=== PATIENT | male | born 1955 | race Two or more races ===

== ENCOUNTER 2017-08-08 02:59 | Emergency (ER) | payer SELFPAY ==
[2017-08-08] MEDS ORDERED: FENTANYL CITR 100 MCG/2 ML ONE (03:48)
[2017-08-08] MEDS ORDERED: NA CHLORIDE 0.9% 1,000 ML ONE (03:49)
[2017-08-08] MEDS ORDERED: KETOROLAC 30 MG/ML INJ ONE (03:49)
[2017-08-08] MEDS ORDERED: ONDANSETRON 4 MG/2 ML VIAL ONE (03:50)
[2017-08-08 04:04] LABS: Absolute Lymphocytes (CBC) 2.8 K/uL (0.7-4.9); Absolute Monocytes 0.6 K/uL (0.1-1.3); Basophils % 0.7 % (0-1.3); Hematocrit 42.5 % (39.6-49.0); MCH 28.4 pg (27.0-35.0); MCV 83.8 fL (80-100); MPV 10.2 fL (7.6-11.3); Monocytes % 8.6 % (3.3-12.3); RBC Red Blood Cell Count 5.07 M/uL (4.33-5.43)
[2017-08-08 04:08] LABS: Protime INR 1.1
[2017-08-08 04:24] LABS: Potassium 4.1 mEq/L (3.6-5.0)
[2017-08-08 04:27] LABS: Magnesium 1.8 mg/dL (1.8-2.5)
[2017-08-08 04:30] LABS: Albumin 4.3 g/dL (3.2-5.5); Bilirubin Direct 0.1 mg/dL (0-0.2); Bilirubin Total 0.5 mg/dL (0.3-1.2); CKMB Creatine Kinase MB 2.5 ng/ml (0.3-4.0); Protein, Total 7.5 g/dL (6.0-8.3)
[2017-08-08] MEDS ORDERED: CEFTRIAXONE/SWI 1gm 1 GM/10 ML SYR ONE (05:13)
[2017-08-08] MEDS ORDERED: TAMSULOSIN 0.4 MG SR CAP ONE (05:13)
[2017-08-08 05:44] LABS: Urine Blood 3+ (NEG); Urine Glucose NEGATIVE (NEG); Urine Protein 2+ (NEG); Urine Specific Gravity >1.030 (1.005-1.030); Urine pH 5.5 (5.0-7.0)
[2017-08-08 05:58] LABS: Urine Bacteria <20 /HPF (NONE SEEN); Urine Culture Reflex Order NOT NEEDED; Urine RBC >50 /HPF (NONE SEEN)
--- NOTE | 2017-08-08 05:58 | EDPHYS ---
Physician Documentation [facility] Name: Richa Staples Age: 61 yrs Sex: Male : 1955 Arrival Date: 08/08/2017 Time: 02:59 Bed 14 Private MD: ED Physician Mohan Hager HPI: 08/08 03:21 This 61 yrs old Other Male presents to ER via Unassigned with complaints of Lower Back sheila Pain-L. 03:21 The patient complains of pain in the left low back and left mid back. The pain does not sheila radiate. Onset: The symptoms/episode began/occurred just prior to arrival, this morning. Modifying factors: The symptoms are alleviated by nothing. the symptoms are aggravated by nothing. Associated signs and symptoms: Pertinent positives: nausea. Severity of pain: At its worst the pain was moderate in the emergency department the pain is unchanged. The patient has not experienced similar symptoms in the past. Historical: - Allergies: 03:26 No Known Allergies; bb - Home Meds: 03:26 metoprolol tartrate 50 mg Oral tab 1 tab once daily [Active]; metformin 1,000 mg Oral bb tab 1 tab 2 times per day [Active]; glimepiride 2 mg Oral tab 1 tab once daily [Active]; - PMHx: 03:26 Hypertension; Myocardial infarction; Diabetes - NIDDM; bb - PSHx: 03:26 Heart stents; bb - Immunization history:: Adult Immunizations unknown. - Social history:: Smoking status: Patient/guardian denies using tobacco, Patient/guardian denies using alcohol, street drugs. - Family history:: not pertinent. ROS: 03:22 Constitutional: Negative for fever, chills, and weight loss, Eyes: Negative for injury, sheila pain, redness, and discharge, ENT: Negative for injury, pain, and discharge, Neck: Negative for injury, pain, and swelling, Cardiovascular: Negative for chest pain, palpitations, and edema, Respiratory: Negative for shortness of breath, cough, wheezing, and pleuritic chest pain, Abdomen/GI: Negative for abdominal pain, nausea, vomiting, diarrhea, and constipation, : Negative for injury, bleeding, discharge, and swelling, MS/Extremity: Negative for injury and deformity, Skin: Negative for injury, rash, and discoloration, Neuro: Negative for headache, weakness, numbness, tingling, and seizure, Psych: Negative for depression, anxiety, suicide ideation, homicidal ideation, and hallucinations, Allergy/Immunology: Negative for hives, rash, and allergies, Endocrine: Negative for neck swelling, polydipsia, polyuria, polyphagia, and marked weight changes, Hematologic/Lymphatic: Negative for swollen nodes, abnormal bleeding, and unusual bruising. 03:22 Back: Positive for decreased range of motion, pain at rest, flank pain, on the left. Exam: 03:22 Constitutional: This is a well developed, well nourished patient who is awake, alert, sheila and in no acute distress. Head/Face: Normocephalic, atraumatic. Eyes: Pupils equal round and reactive to light, extra-ocular motions intact. Lids and lashes normal. Conjunctiva and sclera are non-icteric and not injected. Cornea within normal limits. Periorbital areas with no swelling, redness, or edema. ENT: Nares patent. No nasal discharge, no septal abnormalities noted. Tympanic membranes are normal and external auditory canals are clear. Oropharynx with no redness, swelling, or masses, exudates, or evidence of obstruction, uvula midline. Mucous membranes moist. Neck: Trachea midline, no thyromegaly or masses palpated, and no cervical lymphadenopathy. Supple, full range of motion without nuchal rigidity, or vertebral point tenderness. No Meningismus. Chest/axilla: Normal chest wall appearance and motion. Nontender with no deformity. No lesions are appreciated. Cardiovascular: Regular rate and rhythm with a normal S1 and S2. No gallops, murmurs, or rubs. Normal PMI, no JVD. No pulse deficits. Respiratory: Lungs have equal breath sounds bilaterally, clear to auscultation and percussion. No rales, rhonchi or wheezes noted. No increased work of breathing, no retractions or nasal flaring. Abdomen/GI: Soft, non-tender, with normal bowel sounds. No distension or tympany. No guarding or rebound. No evidence of tenderness throughout. Male : Normal genitalia with no discharge or lesions. Skin: Warm, dry with normal turgor. Normal color with no rashes, no lesions, and no evidence of cellulitis. MS/ Extremity: Pulses equal, no cyanosis. Neurovascular intact. Full, normal range of motion. Neuro: Awake and alert, GCS 15, oriented to person, place, time, and situation. Cranial nerves II-XII grossly intact. Motor strength 5/5 in all extremities. Sensory grossly intact. Cerebellar exam normal. Normal gait. Psych: Awake, alert, with orientation to person, place and time. Behavior, mood, and affect are within normal limits. 03:22 Back: pain, that is mild, that is moderate, ROM is painless, normal spinal alignment noted, CVA tenderness, that is mild, is noted on the left, muscle spasm, is appreciated in the left low back and left mid back. Vital Signs: 03:26 BP 152 / 78; Pulse 74; Resp 20 S; Temp 98.8(O); Pulse Ox 96% on R/A; Weight 98.43 kg bb (R); Height 5 ft. 6 in. (167.64 cm) (R); Pain 10/10; 04:13 BP 149 / 70; Pulse 55; Resp 18; Pulse Ox 97% on R/A; ea 05:27 BP 115 / 64; Pulse 70; Resp 18; Pulse Ox 100% ; Pain 0/10; ea 06:00 BP 110 / 70; Pulse 68; Resp 18; Pulse Ox 100% on R/A; Pain 0/10; ea 03:26 Body Mass Index 35.02 (98.43 kg, 167.64 cm) bb MDM: 03:11 Patient medically screened. [facility] 03:22 Data reviewed: vital signs, nurses notes, lab test result(s), EKG, radiologic studies. [facility] 08/08 03:20 Order name: Amylase, Serum; Complete Time: 04:33 [facility] 08/08 03:20 Order name: Basic Metabolic Panel; Complete Time: 04:33 [facility] 08/08 03:20 Order name: CBC with Diff; Complete Time: 04:20 [facility] 08/08 03:20 Order name: Creatinine for Radiology; Complete Time: 04:33 [facility] 08/08 03:20 Order name: Hepatic Function; Complete Time: 04:33 [facility] 08/08 03:20 Order name: Lipase; Complete Time: 04:33 [facility] 08/08 03:20 Order name: Urine Microscopic Only 08/08 03:20 Order name: Urine Culture 08/08 03:24 Order name: BNP; Complete Time: 04:33 [facility] 08/08 03:24 Order name: Ckmb; Complete Time: 04:33 [facility] 08/08 03:24 Order name: CPK; Complete Time: 04:33 [facility] 08/08 03:24 Order name: Magnesium; Complete Time: 04:33 [facility] 08/08 03:24 Order name: PT-INR; Complete Time: 04:20 [facility] 08/08 03:24 Order name: Ptt, Activated; Complete Time: 04:20 [facility] 08/08 03:20 Order name: IV Saline Lock; Complete Time: 03:46 [facility] 08/08 03:20 Order name: Labs collected and sent; Complete Time: 03:53 [facility] 08/08 03:20 Order name: Urine Dipstick-Ancillary (obtain specimen); Complete Time: 05:26 [facility] 08/08 03:24 Order name: Troponin (emerg Dept Use Only); Complete Time: 04:33 [facility] 08/08 03:24 Order name: XRAY Chest (1 view) [facility] 08/08 03:24 Order name: EKG; Complete Time: 03:24 [facility] 08/08 03:24 Order name: Cardiac monitoring; Complete Time: 04:06 [facility] 08/08 04:07 Order name: CT Stone Protocol [facility] 08/08 05:11 Order name: Urine Dipstick--Ancillary (enter results); Complete Time: 05:57 [facility] 08/08 03:24 Order name: EKG - Nurse/Tech; Complete Time: 04:06 [facility] 08/08 03:24 Order name: O2 Per Protocol; Complete Time: 03:53 [facility] 08/08 03:24 Order name: O2 Sat Monitoring; Complete Time: 03:53 [facility] Administered Medications: 04:06 Drug: fentaNYL (PF) 25 mcg Route: IVP; Site: right wrist; ea 05:26 Follow up: Response: No adverse reaction ea 04:07 Drug: TORadol 30 mg Route: IVP; Site: right antecubital; ea 05:25 Follow up: Response: No adverse reaction; Pain is decreased ea 04:07 Drug: Zofran 4 mg Route: IVP; Site: right wrist; ea 05:25 Follow up: Response: No adverse reaction ea 04:08 Drug: NS 0.9% 1000 ml Route: IV; Rate: 1 bolus; Site: right wrist; ea 05:20 Drug: Rocephin - (cefTRIAXone) 1 grams Route: IVPB; Infused Over: 30 mins; Site: right ea wrist; 06:00 Follow up: Response: No adverse reaction; IV Status: Completed infusion ea 05:20 Drug: Flomax 0.4 mg Route: PO; ea 06:12 Follow up: Response: No adverse reaction ea 06:13 Not Given (Patient Refused): fentaNYL (PF) 25 mcg IVP once ea Disposition: 08/08/17 05:58 Discharged to Home. Impression: Low back pain, Hydronephrosis with renal and ureteral calculous obstruction. - Condition is Stable. - Discharge Instructions: Back Pain, Adult, Chronic Back Pain, Kidney Stones, Musculoskeletal Pain, Kidney Stones, Shsr-zj-Uqru, Hydronephrosis, Back Pain, Adult, Bgyf-is-Jepv, Back Exercises, Xwga-tw-Qody, Dietary Guidelines to Help Prevent Kidney Stones. - Prescriptions for Tylenol- Codeine #3 300-30 mg Oral Tablet - take 2 tablet by ORAL route every 6 hours As needed; 30 tablet. Flomax 0.4 mg Oral Capsule, Sust. Release 24 hr - take 1 capsule by ORAL route once daily 1/2 hour following the same meal each day; 30 capsule. Cipro 500 mg Oral Tablet - take 1 tablet by ORAL route every 12 hours for 7 days; 14 tablet. - Medication Reconciliation Form, Thank You Letter, Antibiotic Education, Prescription Opioid Use form. - Follow up: Private Physician; When: 2 - 3 days; Reason: Recheck today's complaints, Continuance of care, Re-evaluation by your physician. Follow up: Esau Mo; When: 2 - 3 days; Reason: Recheck today's complaints, Re-evaluation by your physician. - Problem is new. - Symptoms have improved. Signatures: Dispatcher [employer] [facility] Mohan Hager MD MD cha Ballard, Brenda RN RN Emiliana White RN RN ea Corrections: (The following items were deleted from the chart) 06:16 05:58 08/08/2017 05:58 Discharged to Home. Impression: Low back pain; Hydronephrosis ea with renal and ureteral calculous obstruction. Condition is Stable. Discharge Instructions: Back Pain, Adult, Chronic Back Pain, Kidney Stones, Musculoskeletal Pain, Kidney Stones, Vumf-iv-Gxwz, Hydronephrosis, Back Pain, Adult, Ojbl-cx-Wcpi, Back Exercises, Djsq-bt-Amiu, Dietary Guidelines to Help Prevent Kidney Stones. Prescriptions for Tylenol-Codeine #3 300-30 mg Oral Tablet - take 2 tablet by ORAL route every 6 hours As needed; 30 tablet, Flomax 0.4 mg Oral Capsule, Sust. Release 24 hr - take 1 capsule by ORAL route once daily 1/2 hour following the same meal each day; 30 capsule, Cipro 500 mg Oral Tablet - take 1 tablet by ORAL route every 12 hours for 7 days; 14 tablet. and Forms are Medication Reconciliation Form, Thank You Letter, Antibiotic Education, Prescription Opioid Use. Follow up: Private Physician; When: 2 - 3 days; Reason: Recheck today's complaints, Continuance of care, Re-evaluation by your physician. Follow up: Esau Mo; When: 2 - 3 days; Reason: Recheck today's complaints, Re-evaluation by your physician. Problem is new. Symptoms have improved. sheila
--- NOTE | 2017-08-08 05:58 | ER ---
Nurse's Notes [facility] Name: Richa Staples Age: 61 yrs Sex: Male : 1955 Arrival Date: 08/08/2017 Time: 02:59 Bed 14 Private MD: Diagnosis: Low back pain;Hydronephrosis with renal and ureteral calculous obstruction Presentation: 08/08 03:22 Presenting complaint: Patient states: he has sudden onset of left flank pain last night bb at approx 2300 pain is getting worse. Transition of care: patient was not received from another setting of care. Onset of symptoms was August 07, 2017 at 23:00. Initial Sepsis Screen: Does the patient meet any 2 criteria? No. Patient's initial sepsis screen is negative. Does the patient have a suspected source of infection? No. Patient's initial sepsis screen is negative. Care prior to arrival: None. 03:22 Method Of Arrival: Ambulatory bb 03:22 Acuity: ROMÁN 3 bb Historical: - Allergies: 03:26 No Known Allergies; bb - Home Meds: 03:26 metoprolol tartrate 50 mg Oral tab 1 tab once daily [Active]; metformin 1,000 mg Oral bb tab 1 tab 2 times per day [Active]; glimepiride 2 mg Oral tab 1 tab once daily [Active]; - PMHx: 03:26 Hypertension; Myocardial infarction; Diabetes - NIDDM; bb - PSHx: 03:26 Heart stents; bb - Immunization history:: Adult Immunizations unknown. - Social history:: Smoking status: Patient/guardian denies using tobacco, Patient/guardian denies using alcohol, street drugs. - Family history:: not pertinent. Screenin:12 Abuse screen: Denies threats or abuse. Nutritional screening: No deficits noted. ea Tuberculosis screening: No symptoms or risk factors identified. Fall Risk None identified. Assessment: 03:42 General: Appears uncomfortable, Behavior is calm, cooperative, appropriate for age. ea Pain: Complains of pain in left mid back and left low back Pain radiates to left low back Pain currently is 7 out of 10 on a pain scale. Quality of pain is described as crampy. Neuro: Level of Consciousness is awake, alert, obeys commands, Oriented to person, place, time, situation. Cardiovascular: Heart tones S1 S2 present Patient's skin is warm and dry. Respiratory: Airway is patent Respiratory effort is even, unlabored, Respiratory pattern is regular, symmetrical, Breath sounds are clear bilaterally. GI: Abdomen is non-distended, Bowel sounds present X 4 quads. : Denies burning with urination. EENT: No signs and/or symptoms were reported regarding the EENT system. Derm: Skin is pink, warm \T\ dry. 04:30 Reassessment: Patient and/or family updated on plan of care and expected duration. Pain ea level reassessed. Patient is alert, oriented x 3, equal unlabored respirations, skin warm/dry/pink. 05:23 Reassessment: Patient and/or family updated on plan of care and expected duration. Pain ea level reassessed. Patient is alert, oriented x 3, equal unlabored respirations, skin warm/dry/pink. 06:13 Reassessment: Patient and/or family updated on plan of care and expected duration. Pain ea level reassessed. Patient is alert, oriented x 3, equal unlabored respirations, skin warm/dry/pink. Discharge instructions given to patient, verbalized the understanding of instruction. Vital Signs: 03:26 BP 152 / 78; Pulse 74; Resp 20 S; Temp 98.8(O); Pulse Ox 96% on R/A; Weight 98.43 kg bb (R); Height 5 ft. 6 in. (167.64 cm) (R); Pain 10/10; 04:13 BP 149 / 70; Pulse 55; Resp 18; Pulse Ox 97% on R/A; ea 05:27 BP 115 / 64; Pulse 70; Resp 18; Pulse Ox 100% ; Pain 0/10; ea 06:00 BP 110 / 70; Pulse 68; Resp 18; Pulse Ox 100% on R/A; Pain 0/10; ea 03:26 Body Mass Index 35.02 (98.43 kg, 167.64 cm) bb ED Course: 02:59 Patient arrived in ED. ds1 03:11 Mohan Hager MD is Attending Physician. sheila 03:24 Triage completed. bb 03:26 Arm band placed on Patient placed in an exam room, on a stretcher, on pulse oximetry. bb Family accompanied patient. 03:42 Emiliana Pena RN is Primary Nurse. ea 03:45 Inserted saline lock: 20 gauge in right forearm, using aseptic technique. Blood jd3 collected. 03:52 X-ray completed. Portable x-ray completed in exam room. Patient tolerated procedure kw well. 03:55 XRAY Chest (1 view) In Process Unspecified. EDMS 04:12 Patient has correct armband on for positive identification. Placed in gown. Bed in low ea position. Call light in reach. Side rails up X2. 04:43 CT Stone Protocol In Process Unspecified. EDMS 05:58 Esau Mo MD is Referral Physician. sheila 06:14 No provider procedures requiring assistance completed. IV discontinued, intact, ea bleeding controlled, No redness/swelling at site. Pressure dressing applied. Administered Medications: 04:06 Drug: fentaNYL (PF) 25 mcg Route: IVP; Site: right wrist; ea 05:26 Follow up: Response: No adverse reaction ea 04:07 Drug: TORadol 30 mg Route: IVP; Site: right antecubital; ea 05:25 Follow up: Response: No adverse reaction; Pain is decreased ea 04:07 Drug: Zofran 4 mg Route: IVP; Site: right wrist; ea 05:25 Follow up: Response: No adverse reaction ea 04:08 Drug: NS 0.9% 1000 ml Route: IV; Rate: 1 bolus; Site: right wrist; ea 05:20 Drug: Rocephin - (cefTRIAXone) 1 grams Route: IVPB; Infused Over: 30 mins; Site: right ea wrist; 06:00 Follow up: Response: No adverse reaction; IV Status: Completed infusion ea 05:20 Drug: Flomax 0.4 mg Route: PO; ea 06:12 Follow up: Response: No adverse reaction ea 06:13 Not Given (Patient Refused): fentaNYL (PF) 25 mcg IVP once ea Outcome: 05:58 Discharge ordered by . sheila 06:15 Discharged to home ambulatory, with family. ea 06:15 Condition: improved 06:15 Discharge instructions given to patient, Instructed on discharge instructions, follow up and referral plans. medication usage, Demonstrated understanding of instructions, follow-up care, medications, Prescriptions given X 4. 06:16 Patient left the ED. ea Signatures: Dispatcher [employer] [facility] Mohan Hager MD MD cha Sanford, Demi ds1 Tamiko Huang RN RN Natalya García Elena, RN RN Jackson Luu, RN RN jd3
[2017-08-08 06:20] VITALS: TEMP 98.8
[2017-08-08 06:22] VITALS: O2SAT 100
[2017-08-08 06:23] VITALS: BP 110/70
--- NOTE | 2017-08-08 07:40 | EKG ---
Test Date: 2017-08-08 Test Time: 03:57:33 Supplier Development Manager: FIDELIA MEASUREMENT RESULTS: Intervals: Rate: 72 [place]: 176 QRSD: 84 QT: 372 QTc: 407 [place]: P: 52 KY: 176 QRS: 33 T: 61 INTERPRETIVE STATEMENTS: Normal sinus rhythm Low voltage QRS Cannot rule out Anteroseptal infarct, age undetermined Abnormal ECG Compared to ECG 11/06/2011 06:53:25 T-wave abnormality no longer present Possible ischemia no longer present Myocardial infarct finding still present Electronically Signed On 08-08-17 07:39:58 CDT by Henry Isaac
--- NOTE | 2017-08-08 08:23 | RAD REPORT ---
EXAM DESCRIPTION: CT - Stone Protocol - 08/08/2017 6:06 am CLINICAL HISTORY: Flank pain. COMPARISON: None. TECHNIQUE: Axial images were obtained without oral or IV contrast. Lack of contrast limits solid org an and vascular assessment. The [id number] spans the entirety of the system partially obscuring uppermost abdomen and lung bases. Coronal reformatted images were obtained and reviewed. All CT scans are performed using dose optimization technique as appropriate and may include automated exposure control or mA/KV adjustment according to patient size. FINDINGS: The lower lung brandt are clear. Imaged portions of the liver and spleen show no suspicious findings on non-contrast imaging. The panc reas and adrenal glands are normal. No pathologic lymphadenopathy in the abdomen or pelvis. 5 mm calculus is seen at the left UPJ (1120 HU) resulting in mild left hydronephrosis. Additional sarwat ateral nephrolithiasis is present. No bowel obstruction, free air, free fluid or abscess. Normal appendix noted. No significant bony abnormality. IMPRESSION: 5 mm stone left UPJ (1120 HU) resulting in mild left hydronephrosis. Additional bilateral nephrolithiasis seen.
--- NOTE | 2017-08-08 08:38 | RAD REPORT ---
EXAM DESCRIPTION: RAD - Chest Single View - 08/08/2017 3:56 am CLINICAL HISTORY: Chest and flank pain COMPARISON: 11/04/2011 FINDINGS: Portable technique limits examination quality. The lungs are grossly clear. The heart is normal in size. No displaced fractures. IMPRESSION: No acute intrathoracic process suspected.
== END 2017-08-08 06:16 | disposition home or self-care (01) ==
LOC: ER 02:59
DX: N13.2 Hydronephrosis with renal and ureteral calculous obstruction (principal); I10 Essential (primary) hypertension; E11.9 Type 2 diabetes mellitus without complications; Z95.818 Presence of other cardiac implants and grafts
CPT/HCPCS: 36415; 71045; 74176; 76377; 80048; 80076; 81003; 81015; 82150; 82550; 82553; 83690; 83735; 83880; 84484; 85025; 85610; 85730; 87086; 87088; 93005; 99284; J0696; J2405; J3010; J7030

== ENCOUNTER 2020-04-08 19:59 | Inpatient (IN) | payer OTHER, SELFPAY ==
--- OUTSIDE RECORDS SUMMARY | 2020-04-08 20:02 | XMS REPORT | Continuity of Care Document ---
:1955 Author Organization [facility] t Address [address] [place] [address] Care Team Providers Name Role Phone Yary Tanner MD Attending Clinician Problems This patient has no known problems. Allergies, Adverse Reactions, Alerts This patient has no known allergies or adverse reactions. Medications This patient has no known medications. Procedures This patient has no known procedures. Encounters Start End Encounter Admission Attending Care Care Encounter Source Date/Time Date/Time Type Type Clinicians Facility Department ID 2018-11-22 2018-11-22 Urgent [facility] [id number] 14:22:36 16:23:06 [facility] [id number] Surgical [id number] Special[facility] [id number] [address] Results This patient has no known results.
[2020-04-08] MEDS ORDERED: ONDANSETRON 4 MG/2 ML VIAL ONE (20:54)
[2020-04-08] MEDS ORDERED: FAMOTIDINE 20 MG/2 ML VIAL IV ONE (20:54)
[2020-04-08] MEDS ORDERED: NA CHLORIDE 0.9% 1,000 ML ONE (20:54)
[2020-04-08 21:08] LABS: Absolute Lymphocytes (CBC) 0.8 K/uL (0.7-4.9); Basophils % 0.2 % (0-1.3); Hematocrit 44.9 % (39.6-49.0); Lymphocytes % 10.7 % (15.3-44.8); MPV 10.3 fL (7.6-11.3); RBC Red Blood Cell Count 5.28 M/uL (4.33-5.43)
[2020-04-08 21:19] LABS: ALT/SGPT 29 U/L (12-78); AST/SGOT 14 U/L (15-37); Albumin 4.3 g/dL (3.4-5.0); Alkaline Phosphatase 53 U/L (45-117); BUN Blood Urea Nitrogen 16 mg/dL (7-18); Bicarbonate 25 mmol/L (21-32); Bilirubin Direct 0.1 mg/dL (0-0.2); Bilirubin Total 0.5 mg/dL (0.2-1.0); Glucose Level 118 mg/dL (74-106); Lipase 64 U/L (73-393); Potassium 3.9 mmol/L (3.5-5.1); Protein, Total 8.5 g/dL (6.4-8.2); Sodium Level 135 mmol/L (136-145)
--- NOTE | 2020-04-08 21:19 | RAD REPORT ---
EXAM DESCRIPTION: CTAbdomen Pelvis W Contrast - 04/08/2020 9:11 pm CLINICAL HISTORY: Abdominal pain. ABDOMINAL DISTENTION COMPARISON: Stone Protocol dated 08/08/2017 TECHNIQUE: Biphasic CT imaging of the abdomen and pelvis was performed with 100 ml non-ionic IV cont rast. All CT scans are performed using dose optimization technique as appropriate and may include automated exposure control or mA/KV adjustment according to patient size. FINDINGS: The lung bases are clear. The liver, spleen, pancreas, adrenal glands and left kidney are within normal limits. 7 mm stone is p resent in right kidney inferior calyx without hydronephrosis. Moderate dilatation of multiple small bowel loops in the central abdomen with fecalization of the sma ll bowel likely indicates a mild to moderate mechanical small-bowel obstruction. No pneumatosis coli. No free fluid or abscess. No intraperitoneal free air. The appendix is normal. No evidence of signi ficant lymphadenopathy. No suspicious bony findings. IMPRESSION: Mild to moderate mechanical small-bowel obstruction.
--- NOTE | 2020-04-08 21:59 | EDPHYS ---
Physician Documentation [facility] Name: Richa Staples Age: 64 yrs Sex: Male : 1955 Arrival Date: 04/08/2020 Time: 20:01 Bed 7 Private MD: ED Physician José Luis Oakes HPI: 04/08 20:43 This 64 yrs old Male presents to ER via Ambulatory with complaints of Decreased mh7 Appetite, Urinary Problem, Constipation, Vomiting. 20:43 The patient presents with abdominal distention that is diffuse. Onset: The mh7 symptoms/episode began/occurred today. The symptoms do not radiate. Associated signs and symptoms: Pertinent positives: nausea and vomiting, constipation, dysuria, Pertinent negatives: anorexia, blood in stools, chest pain, diarrhea, fever, headache, hematuria, palpitations, shortness of breath, testicular pain, vomiting blood. The symptoms are described as vague. Modifying factors: The symptoms are alleviated by nothing, the symptoms are aggravated by nothing. Severity of pain: At its worst the pain was Denies pain, in the emergency department the pain is unchanged. Historical: - Allergies: 20:31 No Known Allergies; lp1 - Home Meds: 20:31 None [Active]; lp1 - PMHx: 20:31 Diabetes - NIDDM; Hypertension; Myocardial infarction; lp1 - PSHx: 20:31 None; lp1 - Immunization history:: Adult Immunizations up to date. - Social history:: Smoking status: Patient denies any tobacco usage or history of. ROS: 20:43 Constitutional: Negative for fever, chills, and weight loss, Eyes: Negative for injury, mh7 pain, redness, and discharge, ENT: Negative for injury, pain, and discharge, Neck: Negative for injury, pain, and swelling, Cardiovascular: Negative for chest pain, palpitations, and edema, Respiratory: Negative for shortness of breath, cough, wheezing, and pleuritic chest pain, Back: Negative for injury and pain, MS/Extremity: Negative for injury and deformity, Skin: Negative for injury, rash, and discoloration, Neuro: Negative for headache, weakness, numbness, tingling, and seizure, Psych: Negative for depression, anxiety, suicide ideation, homicidal ideation, and hallucinations, Allergy/Immunology: Negative for hives, rash, and allergies, Endocrine: Negative for neck swelling, polydipsia, polyuria, polyphagia, and marked weight changes, Hematologic/Lymphatic: Negative for swollen nodes, abnormal bleeding, and unusual bruising. Exam: 20:43 Constitutional: This is a well developed, well nourished patient who is awake, alert, mh7 and in no acute distress. Head/Face: Normocephalic, atraumatic. Eyes: Pupils equal round and reactive to light, extra-ocular motions intact. Lids and lashes normal. Conjunctiva and sclera are non-icteric and not injected. Cornea within normal limits. Periorbital areas with no swelling, redness, or edema. Neck: Trachea midline, no thyromegaly or masses palpated, and no cervical lymphadenopathy. Supple, full range of motion without nuchal rigidity, or vertebral point tenderness. No Meningismus. Chest/axilla: Normal chest wall appearance and motion. Nontender with no deformity. No lesions are appreciated. Cardiovascular: Regular rate and rhythm with a normal S1 and S2. No gallops, murmurs, or rubs. Normal PMI, no JVD. No pulse deficits. Respiratory: Lungs have equal breath sounds bilaterally, clear to auscultation and percussion. No rales, rhonchi or wheezes noted. No increased work of breathing, no retractions or nasal flaring. 20:43 Back: No spinal tenderness. No costovertebral tenderness. Full range of motion. Skin: Warm, dry with normal turgor. Normal color with no rashes, no lesions, and no evidence of cellulitis. MS/ Extremity: Pulses equal, no cyanosis. Neurovascular intact. Full, normal range of motion. Neuro: Awake and alert, GCS 15, oriented to person, place, time, and situation. Cranial nerves II-XII grossly intact. Motor strength 5/5 in all extremities. Sensory grossly intact. Cerebellar exam normal. Normal gait. Psych: Awake, alert, with orientation to person, place and time. Behavior, mood, and affect are within normal limits. 20:43 Abdomen/GI: Inspection: distension, that is mild, in the abdomen diffusely, obese Bowel sounds: normal, in all quadrants, Palpation: abdomen is soft and non-tender, in all quadrants, Indicators: McBurney's point is not tender, Saucedo's sign is negative, Rovsing's sign is negative, Obturator sign is negative, Psoas sign is negative, Liver: no appreciated palpable abnormalities, Hernia: not appreciated. Vital Signs: 20:29 BP 109 / 58; Pulse 83; Resp 18; Temp 97.7(TE); Pulse Ox 99% on R/A; Weight 86.18 kg lp1 (R); Height 5 ft. 6 in. (167.64 cm); 21:52 BP 113 / 64; Pulse 77; Resp 18; Pulse Ox 100% on R/A; mg2 22:30 BP 119 / 75; Pulse 79; Resp 17; Pulse Ox 98% ; rr5 23:30 BP 115 / 80; Pulse 70; Resp 16; Pulse Ox 98% ; rr5 20:29 Body Mass Index 30.67 (86.18 kg, 167.64 cm) lp1 MDM: 21:55 Differential diagnosis: appendicitis, bowel obstruction, cholecystitis, Cholelithiasis, mh7 diverticulitis, gastritis, gastroesophageal reflux disease, non-specific abd pain, pancreatitis, Peptic Ulcer Disease, urinary tract infection. Data reviewed: vital signs, nurses notes, lab test result(s), amylase and lipase, CBC, electrolytes, urinalysis, EKG, radiologic studies, CT scan. Data interpreted: Pulse oximetry: on room air is 100 %. Interpretation: normal. Counseling: I had a detailed discussion with the patient and/or guardian regarding: the historical points, exam findings, and any diagnostic results supporting the discharge/admit diagnosis, lab results, radiology results, the need for further work-up and treatment in the hospital. Response to treatment: the patient's symptoms have mildly improved after treatment. Physician consultation: Mayco Torres MD regarding patient's condition, and will see patient in inpatient room. 21:58 Patient medically screened. [facility] 04/08 20:36 Order name: Basic Metabolic Panel; Complete Time: 21:42 [facility] 04/08 20:36 Order name: CBC with Diff; Complete Time: 21:20 [facility] 04/08 20:36 Order name: Hepatic Function; Complete Time: 21:42 [facility] 04/08 20:36 Order name: Lipase; Complete Time: 21:42 [facility] 04/08 21:35 Order name: COVID-19 [facility] 04/08 20:37 Order name: CT Abd/Pelvis - IV Contrast Only; Complete Time: 21:42 7 04/08 22:03 Order name: Urine Dipstick--Ancillary (enter results); Complete Time: 22:22 2 04/08 22:53 Order name: SARS-COV-2 RT PCR [facility] 04/08 20:36 Order name: IV Saline Lock; Complete Time: 20:46 7 04/08 20:36 Order name: Labs collected and sent; Complete Time: 20:46 7 04/08 20:36 Order name: Urine Dipstick-Ancillary (obtain specimen); Complete Time: 22:18 7 04/08 20:36 Order name: EKG - Nurse/Tech; Complete Time: 20:46 7 04/08 21:02 Order name: Bladder Scanner; Complete Time: 21:02 rr5 04/08 22:11 Order name: CONS Pharmacy Consult [facility] 04/08 22:11 Order name: CONS Physician Consult [facility] 04/08 22:11 Order name: NPO EDMS Administered Medications: 20:55 Drug: NS 0.9% 1000 ml Route: IV; Rate: 1000 ml; Site: right forearm; rr5 23:31 Follow up: Response: No adverse reaction; IV Status: Completed infusion; IV Intake: mg2 1000ml 20:58 Drug: Zofran (Ondansetron) 4 mg Route: IVP; Site: right forearm; rr5 21:49 Follow up: Response: No adverse reaction mg2 21:01 Drug: Pepcid 20 mg Route: IVP; Site: right forearm; rr5 21:49 Follow up: Response: No adverse reaction mg2 22:27 Drug: Flagyl 500 mg Volume: 100 ml; Route: IVPB; Rate: 200 ml/hr; Infused Over: 30 rr5 mins; Site: right forearm; 23:04 Follow up: Response: No adverse reaction; IV Status: Completed infusion; IV Intake: mg2 100ml 23:03 Drug: LevaQUIN 500 mg Volume: 100 ml; Route: IVPB; Infused Over: 60 mins; Site: right mg2 forearm; 23:32 Follow up: IV Status: Infusion continued upon admission mg2 Disposition: 04/08/20 21:58 Hospitalization ordered by Mayco Torres for Inpatient Admission. Preliminary diagnosis is Small Bowel Obstruction. - Bed requested for Telemetry/MedSurg (Inpatient). - Status is Inpatient Admission. rr5 - Condition is Stable. - Problem is new. - Symptoms have improved. Signatures: Dispatcher [employer] EDIA Mee Guy RN RN Yanira Muhammad RN RN lp1 Olu Lind PA PA jr8 Ramses Mancini, MONICA RN [facility] Bronson Borjas RN RN rr5 JoséL uis Oakes MD MD 7 Corrections: (The following items were deleted from the chart) 22:00 21:35 CORONAVIRUS ordered. EDIA EDIA 22:59 21:58 Hospitalization Ordered by Mayco Torres MD for Inpatient Admission. Preliminary diagnosis is Small Bowel Obstruction. Bed requested for Telemetry/MedSurg (Inpatient). Status is Inpatient Admission. Condition is Stable. Problem is new. Symptoms have improved. [facility] 23:37 22:59 04/08/2020 21:58 Hospitalization Ordered by Mayco Torres MD for Inpatient rr5 Admission. Preliminary diagnosis is Small Bowel Obstruction. Bed requested for Telemetry/MedSurg (Inpatient). Status is Inpatient Admission. Condition is Stable. Problem is new. Symptoms have improved. mw
--- NOTE | 2020-04-08 21:59 | ER ---
Nurse's Notes [facility] Name: Richa Staples Age: 64 yrs Sex: Male : 1955 Arrival Date: 04/08/2020 Time: 20:01 Bed 7 Private MD: Diagnosis: Small Bowel Obstruction Presentation: 04/08 20:29 Chief complaint: Patient states: Nausea today, reports feeling dehydrated, dry mouth; lp1 Denies vomiting, diarrhea; States urinary frequency, abdominal bloating. Coronavirus screen: Client denies travel out of the [place] in the last 14 days. At this time, the client does not indicate any symptoms associated with coronavirus-19. Ebola Screen: No symptoms or risks identified at this time. Initial Sepsis Screen: Does the patient meet any 2 criteria? No. Patient's initial sepsis screen is negative. Does the patient have a suspected source of infection? No. Patient's initial sepsis screen is negative. Risk Assessment: Do you want to hurt yourself or someone else? Patient reports no desire to harm self or others. Onset of symptoms was April 08, 2020. 20:29 Method Of Arrival: Ambulatory lp1 20:29 Acuity: ROMÁN 3 lp1 Historical: - Allergies: 20:31 No Known Allergies; lp1 - Home Meds: 20:31 None [Active]; lp1 - PMHx: 20:31 Diabetes - NIDDM; Hypertension; Myocardial infarction; lp1 - PSHx: 20:31 None; lp1 - Immunization history:: Adult Immunizations up to date. - Social history:: Smoking status: Patient denies any tobacco usage or history of. Screenin:31 Abuse screen: Denies threats or abuse. Denies injuries from another. Nutritional lp1 screening: No deficits noted. Tuberculosis screening: No symptoms or risk factors identified. Fall Risk None identified. Assessment: 20:46 General: Appears in no apparent distress. comfortable, Behavior is calm, cooperative. mg2 General: Behavior is. Pain: Complains of pain in abdomen. Neuro: Level of Consciousness is awake, alert, obeys commands, Oriented to person, place, time, situation. Cardiovascular: Capillary refill < 3 seconds Patient's skin is warm and dry. Respiratory: Airway is patent Respiratory effort is even, unlabored, Respiratory pattern is regular, symmetrical. GI: Reports lower abdominal pain, upper abdominal pain, constipation. EENT: No signs and/or symptoms were reported regarding the EENT system. Derm: Skin is intact, is healthy with good turgor, Skin is pink, warm \T\ dry. normal. Musculoskeletal: Circulation, motion, and sensation intact. Capillary refill < 3 seconds. 20:46 GI: Abdomen is tender to palpation X 4 quads. rr5 20:46 GI: Bowel sounds. : No signs and/or symptoms were reported regarding the rr5 genitourinary system. 21:52 Reassessment: Patient appears in no apparent distress at this time. Patient and/or mg2 family updated on plan of care and expected duration. Pain level reassessed. Patient is alert, oriented x 3, equal unlabored respirations, skin warm/dry/pink. 22:30 Reassessment: Patient appears in no apparent distress at this time. Patient and/or rr5 family updated on plan of care and expected duration. Pain level reassessed. Patient is alert, oriented x 3, equal unlabored respirations, skin warm/dry/pink. 23:30 Reassessment: Patient appears in no apparent distress at this time. Patient is alert, rr5 oriented x 3, equal unlabored respirations, skin warm/dry/pink. hospitalist at bedsidetransferred to room 232. Vital Signs: 20:29 BP 109 / 58; Pulse 83; Resp 18; Temp 97.7(TE); Pulse Ox 99% on R/A; Weight 86.18 kg lp1 (R); Height 5 ft. 6 in. (167.64 cm); 21:52 BP 113 / 64; Pulse 77; Resp 18; Pulse Ox 100% on R/A; mg2 22:30 BP 119 / 75; Pulse 79; Resp 17; Pulse Ox 98% ; rr5 23:30 BP 115 / 80; Pulse 70; Resp 16; Pulse Ox 98% ; rr5 20:29 Body Mass Index 30.67 (86.18 kg, 167.64 cm) lp1 ED Course: 20:01 Patient arrived in ED. cf2 20:13 José Luis Oakes MD is Attending Physician. mh7 20:24 Bronson Borjas, MONICA is Primary Nurse. rr5 20:31 Triage completed. lp1 20:31 Arm band placed on. lp1 20:48 Patient has correct armband on for positive identification. Pulse ox on. NIBP on. mg2 20:48 No provider procedures requiring assistance completed. mg2 20:50 Inserted saline lock: 20 gauge in right forearm, using aseptic technique. Blood ds4 collected. 20:50 Bladder scan completed. 175ml ED provider aware. rr5 21:11 CT Abd/Pelvis - IV Contrast Only In Process Unspecified. EDMS 21:40 COVID swab sent to lab. mg2 21:57 Mayco Torres MD is Hospitalizing Provider. mh7 23:33 Patient admitted, IV remains in place. intact, No redness/swelling at site. rr5 Administered Medications: 20:55 Drug: NS 0.9% 1000 ml Route: IV; Rate: 1000 ml; Site: right forearm; rr5 23:31 Follow up: Response: No adverse reaction; IV Status: Completed infusion; IV Intake: mg2 1000ml 20:58 Drug: Zofran (Ondansetron) 4 mg Route: IVP; Site: right forearm; rr5 21:49 Follow up: Response: No adverse reaction mg2 21:01 Drug: Pepcid 20 mg Route: IVP; Site: right forearm; rr5 21:49 Follow up: Response: No adverse reaction mg2 22:27 Drug: Flagyl 500 mg Volume: 100 ml; Route: IVPB; Rate: 200 ml/hr; Infused Over: 30 rr5 mins; Site: right forearm; 23:04 Follow up: Response: No adverse reaction; IV Status: Completed infusion; IV Intake: mg2 100ml 23:03 Drug: LevaQUIN 500 mg Volume: 100 ml; Route: IVPB; Infused Over: 60 mins; Site: right mg2 forearm; 23:32 Follow up: IV Status: Infusion continued upon admission mg2 Intake: 23:04 IV: 100ml; Total: 100ml. mg2 23:31 IV: 1000ml; Total: 1100ml. mg2 Outcome: 21:58 Decision to Hospitalize by Provider. mh7 23:33 Admitted to Med/surg accompanied by tech, via wheelchair, room 232. rr5 23:33 Condition: stable 23:33 Instructed on the need for admit. 23:37 Patient left the ED. rr5 Signatures: Dispatcher [employer] EDMS Yanira Muhammad RN RN lp1 Darrel Mahajan ds4 Ramses Mancini RN RN mg2 Bronson Borjas RN RN rr5 Rosa Camarillo cf2 José Luis Oakes MD MD mh7
[2020-04-08] MEDS ORDERED: ONDANSETRON 4 MG/2 ML VIAL IV PRN (22:05)
[2020-04-08] MEDS ORDERED: MORPHINE 4 MG/ML SYR IV PRN (22:05)
[2020-04-08] MEDS: DIAZEPAM 5 MG TABLET PO ONE (22:07)
[2020-04-08] MEDS ORDERED: MINERAL OIL 30 ML UCUP PO ONE (22:08)
[2020-04-08 22:18] LABS: Urine Blood 3+ (NEG); Urine Glucose NEGATIVE (NEG); Urine Protein NEGATIVE (NEG)
[2020-04-08] MEDS ORDERED: Levofloxacin500mg IV 500 MG/100 ML BAG IV ONE (22:34)
[2020-04-08] MEDS ORDERED: METRONIDAZOLE 500mg IVPB 500 MG/100 ML BAG IV ONE (22:34)
[2020-04-08 23:44] VITALS: O2SAT 98
[2020-04-09] MEDS: NA CHLORIDE 0.9% 1,000 ML IV SCH ×2 (00:48→08:47)
--- NOTE | 2020-04-09 01:03 | P.CNS ---
Date of Consult: 04/08/20 Reason for Consult: Medical management of diabetes, hypertension Requesting Physician: Mayco Torres Chief Complaint: Abdominal pain History of Present Illness: This is a 64-year-old male that presented to the emergency room today for complaints of lower abdominal pain and nausea vomiting. Patient was worked up in the emergency room and found to have a small bowel obstruction, mechanical in nature. Patient denies ever having this problem in the past. Patient denies any abdominal surgeries in the past. Patient was admitted to general surgery service. At that time he asked if medicine could consult as patient has a history of diabetes mellitus and high blood pressure with a previous heart attack in the past and 2 stents placed. Patient was seen in the emergency room by medicine and was doing well. Patient had pain 4/5 at this time. No active nausea or vomiting. Nasogastric tube was not in place at this time as he is not requiring it. Patient without any other complaints at this time. Current labs in the emergency room showed a sodium of 135, potassium of 3.9, chloride of 102, bicarb 25, BUN of 16, creatinine 0.8, glucose 118. Patient had a white cell count 7.9, a hemoglobin of 15.1, hematocrit 44.9, platelet of 177. Home medications list reviewed: Yes - Past Medical/Surgical History Diabetic: Yes - Social History Smoking Status: Current every day smoker Smoking therapy provided: No Alcohol use: Yes CD- Drugs: No Caffeine use: Yes Place of Residence: Home <Darrell Lind - Last Filed: 04/09/20 00:57> - Family History Mother Medical History: Heart disease <olivier guevara - Last Filed: 04/09/20 16:35> Allergies No Known Allergies Allergy (Verified 04/09/20 00:44) Home Medications: Aspirin [Aspirin EC 81 MG] 81 mg PO DAILY #30 tablet. 04/09/20 Review of Systems General: Unremarkable Eyes: Unremarkable ENT: Unremarkable Respiratory: Unremarkable Cardiovascular: Unremarkable Gastrointestinal: Nausea, Vomiting, Abdominal Pain Genitourinary: Unremarkable Musculoskeletal: Unremarkable Integumentary: Unremarkable Neurological: Unremarkable Lymphatics: Unremarkable <Darrell Lind - Last Filed: 04/09/20 00:57> Physical Examination Temp Pulse Resp BP Pulse Ox 97.7 F 70 16 115/80 04/08/20 20:29 04/08/20 23:30 04/08/20 23:30 04/08/20 23:30 General: Alert, In no apparent distress, Oriented x3, Cooperative HEENT: PERRLA, Mucous membr. moist/pink, EOMI Neck: Supple, 2+ carotid pulse no bruit, JVD not distended, No Thyromegaly Respiratory: Clear to auscultation bilaterally, Normal air movement Cardiovascular: No edema, Normal pulses, Regular rate/rhythm, Normal S1 S2, No gallops, No rubs, No murmurs Capillary refill: <2 Seconds Gastrointestinal: Soft and benign, No ascites, No masses, No rebound, No guarding, Other (Patient had hypoactive bowel sounds to the left upper and lower quadrant of the abdomen with normal bowel sounds of the right upper and right lower quadrant of the abdomen), Distended (Mild distension noted), Tenderness (Mild tenderness generally throughout abdomen) Musculoskeletal: No clubbing, No swelling, No contractures, No erythema, No tenderness, No warmth Integumentary: No rashes, No breakdown, No significant lesion, No tenderness/swelling, No erythema, No warmth, No cyanosis Neurological: Normal speech, Normal strength at 5/5 x4 extr, Normal tone, Sensation intact, Cranial nerves 3-12 intact, Normal affect Lymphatics: No axilla or inguinal lymphadenopathy Laboratory Data (last 24 hrs) 04/08/20 20:51: WBC 7.9, Hgb 15.1, Hct 44.9, Plt Count 177 04/08/20 20:51: Sodium 135 L, Potassium 3.9, BUN 16, Creatinine 0.80, Glucose 118 H, Total Bilirubin 0.5, AST 14 L, ALT 29, Alkaline Phosphatase 53, Lipase 64 L <Darrell Lind - Last Filed: 04/09/20 00:57> Temp Pulse Resp BP Pulse Ox 97.8 F 62 16 102/56 L 95 04/09/20 12:00 04/09/20 12:00 04/09/20 12:00 04/09/20 12:00 04/09/20 12:00 Laboratory Data (last 24 hrs) 04/08/20 20:51: WBC 7.9, Hgb 15.1, Hct 44.9, Plt Count 177 04/08/20 20:51: Sodium 135 L, Potassium 3.9, BUN 16, Creatinine 0.80, Glucose 118 H, Total Bilirubin 0.5, AST 14 L, ALT 29, Alkaline Phosphatase 53, Lipase 64 L <olivier guevara - Last Filed: 04/09/20 16:35> - Problems (1) Hypertension Current Visit: Yes Status: Chronic Qualifiers: Hypertension type: essential hypertension Qualified Code(s): I10 - Essential (primary) hypertension (2) Small bowel obstruction Current Visit: Yes Status: Acute (3) Non-insulin dependent diabetes mellitus Current Visit: Yes Status: Chronic (4) Previous myocardial infarction older than 8 weeks Current Visit: Yes Status: Resolved Conclusions/Impression: 1. Patient [facility] floor for continuation and monitoring of small bowel obstruction where he will be seen by general surgery 2. We will continue to monitor patient's vital signs including blood pressure, heart rate, oxygen saturation during his placement in hospital. Will adjust blood pressures as needed to maintain a blood pressure less than 160 systolic and diastolic less than 100 3. Patient's blood sugar at this time well maintained. Will continue to monitor blood sugars with BMP and blood glucose monitoring as needed. We will institute sliding scale if glucose starts to elevate greater than 180. Critical Care: No Time Spent Managing Pts care (In Minutes): 60 <Darrell Lind - Last Filed: 04/09/20 00:57> - Problems (1) Paroxysmal atrial fibrillation Current Visit: Yes Status: Acute (2) Small bowel obstruction Current Visit: Yes Status: Acute (3) Previous myocardial infarction older than 8 weeks Current Visit: Yes Status: Resolved Physician Review: Patient Assessed, Agree with Above Assessment and Plan Physician Review Additional Text: Small-bowel obstruction. Paroxysmal atrial fibrillation. Hypotension Plan: IV hydration. IV normal saline bolus as needed. Cardiology consult. <olivier guevara - Last Filed: 04/09/20 16:35>
[2020-04-09 01:18] VITALS: BMI 30.7
[2020-04-09] MEDS: DIAZEPAM 5 MG TABLET PO ONE (01:49)
[2020-04-09] MEDS ORDERED: METOPROLOL TARTRATE 5 MG/5 ML INJ IV STA (02:52)
[2020-04-09] MEDS: INSULIN -REGULAR HUMAN 50 UNIT/0.5 ML ML SQ SCH ×2 (05:49→12:00)
[2020-04-09] MEDS ORDERED: METOPROLOL TAR 25 MG TAB PO SCH (06:00)
[2020-04-09] MEDS ORDERED: INSULIN -REGULAR HUMAN 50 UNIT/0.5 ML ML SQ SCH (07:30)
[2020-04-09] MEDS ORDERED: ENOXAPARIN 100 MG/ML SYR SQ SCH (09:00)
[2020-04-09] MEDS ORDERED: INFLUENZA VACCINE (for 3y+) 0.5 ML DOSE IMVAC ONE (11:00)
[2020-04-09] MEDS ORDERED: PNEUMOCOCCAL VACCINE 0.5 ML IMVAC ONE (11:00)
--- NOTE | 2020-04-09 11:34 | RAD REPORT ---
EXAM DESCRIPTION: RAD - Abdomen 1 View (KUB) - 04/09/2020 11:12 am CLINICAL HISTORY: SBO Pain COMPARISON: Abdomen Pelvis W Contrast dated 04/08/2020 FINDINGS: Significant fecal retention is seen. There is a generalized paucity of small bowel gas. No suspicious calcifications. Evaluation of the patient's small-bowel obstruction is extremely limited due to lack of bowel gas visualized on plain radiograph.
--- NOTE | 2020-04-09 11:40 | P.PN ---
Subjective Date of Service: 04/09/20 Chief Complaint: Abdominal pain Patient reports 2 bowel movements since admission. States his abdominal distention has resolved and he has no abdominal pain. He has been experiencing bouts of rapid AFib and hypotension. Patient given 500 mL normal saline bolus this morning. Physical Examination - Vital Signs Temperature: 98.0 F Blood Pressure: 80/50 Pulse: 73 Respirations: 18 Pulse Ox (%): 96 - Physical Exam General: Alert, In no apparent distress, Oriented x3 HEENT: Mucous membr. moist/pink Neck: Supple Respiratory: Clear to auscultation bilaterally, Normal air movement Cardiovascular: No edema, Regular rate/rhythm, Normal S1 S2 Gastrointestinal: Soft and benign, Non-distended, No tenderness, Hyperactive Musculoskeletal: No swelling, No tenderness Integumentary: No rashes, No erythema Neurological: Normal strength at 5/5 x4 extr, Cranial nerves 3-12 intact - Studies Laboratory Data (last 24 hrs) 04/08/20 20:51: WBC 7.9, Hgb 15.1, Hct 44.9, Plt Count 177 04/08/20 20:51: Sodium 135 L, Potassium 3.9, BUN 16, Creatinine 0.80, Glucose 118 H, Total Bilirubin 0.5, AST 14 L, ALT 29, Alkaline Phosphatase 53, Lipase 64 L Assessment And Plan - Current Problems (Diagnosis) (1) Paroxysmal atrial fibrillation Current Visit: Yes Status: Acute (2) Small bowel obstruction Current Visit: Yes Status: Acute (3) Previous myocardial infarction older than 8 weeks Current Visit: Yes Status: Resolved - Plan Continue IV normal saline. Intermittent IV normal saline bolus as needed. IV antibiotics. Repeat KUB Cardiology consult for afib. Patient may need chronic anticoagulation. Obtain echocardiogram.
[2020-04-09 12:56] LABS: Magnesium 1.9 mg/dL (1.8-2.4); Phosphorus 3.6 mg/dL (2.5-4.9)
--- NOTE | 2020-04-09 13:28 | EKG ---
Test Date: 2020-04-08 Test Time: 20:42:28 [employer]: MG MEASUREMENT RESULTS: Intervals: Rate: 79 MI: 162 QRSD: 96 QT: 394 QTc: 451 [place]: P: 63 MI: 162 QRS: 62 T: 68 INTERPRETIVE STATEMENTS: Normal sinus rhythm Septal infarct, age undetermined Abnormal ECG Compared to ECG 08/08/2017 03:57:33 No significant changes Electronically Signed On 04-09-20 13:28:09 STRING STUDIES DIRECTOR by Christiano Hummel
--- NOTE | 2020-04-09 16:44 | P.PN ---
Date of Service: 04/09/20 I discussed case with Dr. Hummel. Per Dr. Hummel, he will follow with patient in the office next week for further evaluation of the paroxysmally atrial fibrillation if patient is okay for discharge. Dr. Hummel also recommended aspirin for now.
--- NOTE | 2020-04-09 16:47 | P.HP ---
Date of Service: 04/08/20 PC:This 64-year-old male presented to the emergency room with severe abdominal pain and distention for diagnosis and treatment. HPC: Patient states he has been mildly constipated the last 24-48 hr. Left side had a large dinner with red finish vessels [place] etc. Noticed afterwards that he was distended and felt gassy. However the pain would not subside as despite taking some medication at home. Came to the emergency room for diagnosis and treatment. PMH: S this is otherwise Marsha male, has recently band on keto and intermittent fasting diet PSHx: No prior surgeries SOC: No known allergies SYS REVIEW: No cough, wheeze, shortness of breath. No chest pain or palpitations. Does have some urinary complaints with hesitancy and frequency O/E awake alert comfortable HEENT: Within normal limits Chest: Chest movement equal bilaterally ABD: Abdomen distended and tympanic LOCO: Intact DATA: CT scan suggest mechanical SBO IMPRESSION: Partial small-bowel obstruction PLAN: This is been admitted at this time for IV fluids, and observation. I suspect this will resolve non operatively.
--- NOTE | 2020-04-09 16:49 | P.PN ---
Date of Service: 04/09/20 S: Patient feels much better today, has started having bowel movements. His abdominal distension cramping pain and feeling of discomfort is gone. He is anxious to eat, and go home. O: Vital signs are stable, abdominal exam shows a soft nontender no evidence of any distention or tympany at the moment. A: Partial small-bowel obstruction appears to have resolved P: I will discharge the patient home. He has been advised about diet, and staying hydrated, and following up with me in my office on Saturday. At that time we will schedule the appointment with a deck mechanic for possible colonoscopy in the future. He is very happy with this plan, wants to proceed. He does she have any recurrence of his symptoms or problems that he is to return to the emergency room or contact me.
[2020-04-09 17:43] VITALS: BP 103/56; TEMP 97.4
--- NOTE | 2020-04-09 19:08 | CON ---
Date of Consultation: 04/09/2020 Reason For Consultation: Paroxysmal atrial fibrillation. History Of Present Illness: Mr. Staples is a 64-year-old male with history of diabetes, hypertension, coronary artery disease, had been lost to followup from a CAD standpoint for many years. He is to s ee me in the office, but has done very well from a cardiac standpoint and has not seen me for a while , but nevertheless he came in with a small bowel obstruction, that is mechanical, that is resolving. He has already had bowel movements. He denied any chest pain. He denied any symptoms of palpitatio n, syncope, fever, or chills, but apparently while he is on the monitor, has had 2 or 3 episodes of p aroxysmal atrial fibrillation, that were resolved on their own. Past Medical History: As stated above. Allergies: NONE. Review of Systems: Negative. Social History: Negative. Family History: Negative. Medications: He is taking no medications at home. He is on metoprolol, now on Lovenox. Physical Examination: His physical examination that was done by Dr. Leon reportedly is normal. Laboratory Data: Echocardiogram is pending for the morning. It does not sound like there is any nela n for surgery. Impression And Plan: 1.Paroxysmal atrial fibrillation. 2.Diabetes. 3.Hypertension. 4.History of coronary artery disease. I would suggest at least for now a baby aspirin and a low-dose metoprolol. I will have him come to t he office in the very near future and I will do an event monitor on him. I think he should be a good candidate for Xarelto or Eliquis, but I will evaluate that later. I would like him to have another ultrasound, MPI, and an office visit after an event monitor, and we will discuss that further. As fa r as I am concerned, he is cleared to go home. MARIBEL/DONNL Voice ID: [id number] Report ID: [id number]
== END 2020-04-09 18:00 | disposition home or self-care (01) | DRG 390 ==
LOC: ER 19:59 → ERHOLD 22:13 → 2ND 23:11
PROVIDERS: ADMIT Surgery; ATTEND Surgery
DX: K56.600 Partial intestinal obstruction, unspecified as to cause (principal); I48.0 Paroxysmal atrial fibrillation; E11.9 Type 2 diabetes mellitus without complications; I95.9 Hypotension, unspecified; I10 Essential (primary) hypertension; I25.10 Atherosclerotic heart disease of native coronary artery without angina pectoris; F17.200 Nicotine dependence, unspecified, uncomplicated; I25.2 Old myocardial infarction; Z86.73 Personal history of transient ischemic attack (TIA), and cerebral infarction without residual deficits; Z95.5 Presence of coronary angioplasty implant and graft; Z79.82 Long term (current) use of aspirin; Z20.822 Contact with and (suspected) exposure to COVID-19; Z23 Encounter for immunization
CPT/HCPCS: 36415; 74018; 74177; 80048; 80076; 81003; 82565; 82947; 83690; 83735; 84100; 85025; 90471; 90732; 93005; 96361; 96365; 96375; 99285; J1650; J2405; J7030; Q2035; Q9967; U0003

== ENCOUNTER 2021-06-01 06:29 | Day surgery (SDC) | payer OTHER ==
[2021-06-01] MEDS ORDERED: BSS OPTHALMIC SOL 15 ML OPTH ONE ×2 (07:06→07:13)
[2021-06-01] MEDS ORDERED: TOBRADEX 0.3-0.1% OPTH OINTMENT ONE ×2 (07:06→07:13)
[2021-06-01] MEDS ORDERED: POVIDONE-IODINE 5% EYE DROPS ONE ×2 (07:07→07:14)
[2021-06-01] MEDS ORDERED: EPINEPHRINE/PF 1 MG/ML AMP ONE ×2 (07:07→07:14)
[2021-06-01] MEDS ORDERED: DUOVISC 1 KIT OPTH ONE ×2 (07:08→07:14)
[2021-06-01] MEDS ORDERED: LIDOCAINE 1% MPF 2 ML AMPULE ONE (07:13)
[2021-06-01] MEDS ORDERED: TETRACAINE HCL 0.5% 4ML OPTH ONE (07:13)
[2021-06-01] MEDS: NA CHLORIDE 0.9% 1,000 ML ONE ×2 (07:23→08:38)
[2021-06-01] MEDS: KETOROLAC OPTHALMIC 5 ML BOT ONE ×2 (07:30→07:45)
[2021-06-01] MEDS: PHENYLEPHRINE 2.5% OPTH 2 ML ONE ×2 (07:30→07:45)
[2021-06-01] MEDS: CYCLOPENTOLATE 2% OPTH 2 ML ONE ×2 (07:30→07:45)
[2021-06-01] MEDS: TROPICAMIDE 1% OPTH 3 ML BOT ONE ×2 (07:30→07:45)
[2021-06-01] MEDS: LIDOCAINE HCL/PF 3.5% OPTH GEL ONE ×3 (07:30→08:39)
[2021-06-01] MEDS: MOXIFLOXACIN HCL 0.5% 3ML OPTH OPTH ONE ×2 (07:30→07:45)
[2021-06-01] MEDS: TETRACAINE HCL 0.5% 4ML OPTH ONE ×2 (07:30→07:45)
[2021-06-01] MEDS ORDERED: BALANCED SALT IRRIG PLAIN 500 ML IRR ONE (07:34)
[2021-06-01] MEDS ORDERED: CELECOXIB 100 MG CAPSULE ONE (08:27)
[2021-06-01] MEDS ORDERED: ACETAMINOPHEN 500 MG TAB ONE (08:27)
[2021-06-01] MEDS ORDERED: Ringers Lactate 1,000 ML IV ONE (08:27)
[2021-06-01] MEDS ORDERED: CEFAZOLIN SODIUM 1 GM/VIAL ONE (08:27)
[2021-06-01 09:25] VITALS: TEMP 96.9
[2021-06-01 09:49] VITALS: O2SAT 100
[2021-06-01 09:50] VITALS: BP 115/47
--- NOTE | 2021-06-01 20:02 | OP ---
Date of Procedure: 06/01/2021 Surgeon: Kevin Angulo MD Preoperative Diagnosis: Visually significant cataract, left eye. Postoperative Diagnosis: Visually significant cataract, left eye. Procedure Performed: Complex cataract extraction with iris hooks secondary to poor dilation with placement of intraocular lens. Description Of Procedure: After being properly identified in the preoperative holding area, the patient was taken back to the operating room. A time-out was performed. The patient was then prepped and draped in normal sterile fashion. Examination of the eye underneath the operating microscope revealed a poorly dilated pupil and decision to use iris hooks was made. The globe was grasped with a pair of 0.12 forceps and paracentesis wound was made in the 3 o'clock and 9 o'clock positions and the anterior chamber instilled with preservative-free lidocaine and followed by Viscoat. No significant improvement and the dilation was carried out and therefore the decision to use iris hooks was made. Four additional paracentesis wounds were made, one for each of the iris hooks, which were then placed through and used to draw the iris into a large square in order to aid in proper visualization. Once this was carried out, the main phaco incision wound was made in a triplane fashion using a 2.4 mm keratome superiorly and a continuous curvilinear capsulorrhexis was created using a cystotome and completed with Utrata forceps. Prior to any of the incisions placed above, a Lao axis marker was used to izzy 13 degrees axis aligned with our 0 and 180- degree mcleod made in the preoperative holding area for alignment of the toric lens. Hydrodissection and hydrodelineation of the lens nucleus were carried out with a Escobedo cannula and the lens was freely rotated. The lens was thereafter removed using a standard divide and conquer technique and once all 4 quadrants have been removed, the phaco handpiece was exchanged for bimanual irrigation aspiration handpieces and all cortical material was removed and the posterior capsule as well as the posterior aspect of the anterior capsule was polished. The capsular bag was then filled with Provisc and a synergy model XPY379 22.5 diopter power, serial #[id number] was placed into the capsular bag and rotated into position. The iris hooks were then removed and the remaining viscoelastic removed with the coaxial I and A handpiece. Once all viscoelastic had been removed, the IOL was again examined for proper torque alignment and with the mcleod aligning with our mcleod made on the cornea. The wounds were hydrated and found to be watertight and the lid speculum and drapes were removed. The patient was patched over TobraDex ointment and taken to the postoperative holding area in stable condition having tolerated the procedure well. There were no complications. Estimated Blood Loss: None. Specimens: There were no specimens sent. Drains: No drains placed. Implant: As above. The patient is to follow up with myself, Dr. Kevin Angulo at the [facility] tomorrow morning. DICTATED BUT NOT REVIEWED JPG/MODL Voice ID: [id number] Report ID: [id number] MTDD
== END 2021-06-01 09:42 | disposition home or self-care (01) ==
LOC: OR 06:29
PROVIDERS: ATTEND Ophthalmology
PROC: 08RK3JZ Replacement of Left Lens with Synthetic Substitute, Percutaneous Approach (ICD-10-PCS; principal; 2021-06-01 07:30)
DX: H54.62 Unqualified visual loss, left eye, normal vision right eye (principal); H26.8 Other specified cataract; Z20.822 Contact with and (suspected) exposure to COVID-19
CPT/HCPCS: 82947; 66982; U0002; J0171; J7120; J7030; J0690

== ENCOUNTER 2022-03-13 06:35 | Day surgery (SDC) | payer OTHER ==
[2022-03-13] MEDS ORDERED: TOBRADEX 0.3-0.1% OPTH OINTMENT ONE (06:53)
[2022-03-13] MEDS ORDERED: BSS OPTHALMIC SOL 15 ML OPTH ONE (06:53)
[2022-03-13] MEDS ORDERED: POVIDONE-IODINE 5% EYE DROPS ONE (06:54)
[2022-03-13] MEDS ORDERED: BALANCED SALT IRRIG PLAIN 500 ML IRR ONE (06:54)
[2022-03-13] MEDS ORDERED: EPINEPHRINE/PF 1 MG/ML AMP ONE (06:54)
[2022-03-13] MEDS ORDERED: KETOROLAC OPTHALMIC 5 ML BOT ONE (07:12)
[2022-03-13] MEDS ORDERED: PHENYLEPHRINE 10% OPTH 5ML ONE (07:12)
[2022-03-13] MEDS ORDERED: TROPICAMIDE 1% OPTH 3 ML BOT ONE (07:12)
[2022-03-13] MEDS ORDERED: NA CHLORIDE 0.9% 1,000 ML ONE (07:13)
[2022-03-13] MEDS ORDERED: CYCLOPENTOLATE 2% OPTH 2 ML ONE (07:13)
[2022-03-13] MEDS ORDERED: MOXIFLOXACIN HCL 10 DROPS/ML **OR USE OPTH ONE (07:22)
[2022-03-13] MEDS ORDERED: propofoL 200 MG/20 ML VIAL IV ONE (07:28)
[2022-03-13] MEDS ORDERED: MIDAZOLAM HCL 2 MG/2 ML INJ ONE (07:28)
[2022-03-13] MEDS ORDERED: FENTANYL CITR 100 MCG/2 ML ONE (07:29)
[2022-03-13] MEDS ORDERED: LIDOCAINE 2% MPF 5 ML VIAL ONE (07:30)
[2022-03-13] MEDS ORDERED: dexAMETHasone 10 MG/ML VIAL ONE (07:30)
[2022-03-13] MEDS ORDERED: ONDANSETRON 4 MG/2 ML VIAL ONE (07:30)
[2022-03-13] MEDS ORDERED: EPHEDRINE SULF 50 MG/ML VIAL ONE (07:48)
[2022-03-13] MEDS ORDERED: NS 0.9% VIAL 10 ML ONE (07:48)
[2022-03-13] MEDS ORDERED: Phenylephrine HCl 10 MG/ML 1 ML VIAL ONE (07:48)
[2022-03-13] MEDS: DUOVISC 1 KIT OPTH ONE ×2 (08:14→08:30)
--- NOTE | 2022-03-13 09:43 | OP ---
Date of Procedure: 03/13/2022 Surgeon: Kevin Angulo MD Physics Technical Officer: None. Preoperative Diagnosis: Visually significant senile cataract, right eye. Postoperative Diagnoses: Visually significant senile cataract, right eye along with zonular laxity. Procedure Performed: Cataract extraction complex with 4 iris hooks and capsular tension ring with pl acement of intraocular lens. Description Of Procedure: After being properly identified in the preoperative holding, the patient w as taken back to the operating room where a time-out was performed. The patient was then prepped and draped in normal sterile fashion. Examination of the eye underneath the operating microscope reveal ed a poorly dilated pupil in the right eye and therefore the decision to use iris hooks was made. Gr asping the globe with a pair of 0.12 forceps, 4 paracentesis ports were made in each quadrant to faci litate the iris hooks and a single paracentesis superiorly at 12 o'clock and 1 inferiorly at 6 o'cloc k for instrumentation. Viscoelastic was added to the anterior chamber and 4 iris hooks were placed i nto the previously made incisions and used to drill the iris open allowing visualization to proceed w ith the cataract surgery safely. The globe was thereafter grasped with a pair of 0.12 forceps one mo re time and a 2.75 mm keratome was used to make the main phaco incision wound temporally in a triplan e type fashion. A cystotome was used to make a continuous curvilinear capsulorrhexis, which was comp leted with Utrata forceps. Thereafter, hydrodissection and hydrodelineation of the lens were carried out resulting in the lens having free rotation. The phaco handpiece was then used to remove the galilea s in a standard divide and conquer technique and all 4 quadrants were removed with a continuous dispe rsed energy of approximately 15 seconds. The phaco handpiece was then exchanged for bimanual irrigat ion and aspiration handpieces and all cortical material was removed. During removal of this cortical material, it was noted that there was some zonular laxity of the capsular bag and the inferior tempo ral quadrant and therefore, a capsular tension ring was placed once all the cortex had been removed. The capsular bag was filled with viscoelastic and the capsular tension ring placed and thereafter, t he IOL Rosalino and Rosalino, model [id number], power 22.0 diopters, serial #[id number] was placed into the capsular bag. The remaining viscoelastic was thereafter removed using a coaxial I and A handpiece a fter removal of the iris hooks and then each of the wounds was irrigated using a 30-gauge cannula and intra-ocular BSS. Each of the wounds were found to be watertight and thereafter the procedure concl uded and the lid speculum and drapes removed. The patient was patched over TobraDex ointment and jarod en to the postoperative holding area in stable condition having tolerated the procedure well. There were no complications. Estimated blood loss less than 1 mL. No specimens were sent. No drains were placed. The implants are as above. The patient is to follow up with myself, Dr. Kevin Angulo in my office tomorrow morning. RAYMUNDO/NATHALIE Voice ID: [id number] Report ID: [id number]
[2022-03-13 10:44] VITALS: BP 113/56; TEMP 97; O2SAT 98
== END 2022-03-13 10:20 | disposition home or self-care (01) ==
LOC: OR 06:35
PROVIDERS: ATTEND Ophthalmology
PROC: 08RJ3JZ Replacement of Right Lens with Synthetic Substitute, Percutaneous Approach (ICD-10-PCS; principal; 2022-03-13 07:30)
DX: H25.89 Other age-related cataract (principal); H25.11 Age-related nuclear cataract, right eye
CPT/HCPCS: 66982; 82947 ×2; J2704; J0171; J2370; J2001; J2250; J3010; J1100; A4216; J7030; J2405

== ENCOUNTER 2024-03-05 15:25 | Observation (INO) | payer OTHER ==
--- OUTSIDE RECORDS SUMMARY | 2024-03-05 15:29 | XMS REPORT | Continuity of Care Document ---
Author Name Unknown Address [address] [facility] [address] [place] [address] [facility] Address [address] [facility] [address] [place] [address] Care Team Providers Care Used Car Salesperson Name Role Phone Sivan Ahn Attending Clinician Unavailable Ciro BARKLEY, Norman Pringle Attending Clinician [phone] Problems Condition Name Condition Details Condition Category Status Onset Date Resolution Date Last Treatment Date Treating Clinician Comments Source Benign prostatic hypertroph y with outflow obstructio n BPH loc w urin obs/LUTS Problem [facility] [id number] Coronary artery disease involving [place] coronary artery of [place] heart without angina pectoris Problem [facility] [id number] Mixed hyperlipid emia Problem [facility] [id number] Low libido Problem [facility] [id number] ED (erectile dysfunctio n) of organic origin Problem [facility] [id number] Hypogonado tropic hypogonadi sm Problem [facility] Hyperglyce kadi due to type 2 diabetes mellitus Type 2 diabetes mellitus with hyperglyce kadi, without long-term current use of insulin Problem [facility] [id number] Other obstructiv e and reflux uropathy Problem [facility] [id number] Hypogonadi sm male Problem [facility] [id number] Paroxysmal atrial fibrillati on Problem [facility] Social History Social Habit Start Date Stop Date Quantity Comments Source History of Tobacco Use [facility] Sex Assigned At [facility] Smoking Status Start Date Stop Date Source Never Smoker [facility] Former Smoker 2023-10-10 00:00:00 2023-10-10 00:00:00 [facility] Medications Ordered Medication Name Filled Medication Name Start Date Stop Date Current Medication? Ordering Clinician Indication Dosage Frequency Signature (SIG) Comments Components Source clomiPHENE Citrate 50 MG clomiPHENE Citrate 50 MG 2023-03 014 00:00: 00 No QD clomiPHENE Citrate 50 MG Lisinopril 2.5 MG Lisinopril 2.5 MG 08-07 00:00: 00 No 1{table t} QD Lisinopril 2.5 MG Tamsulosin HCl 0.4 MG Tamsulosin HCl 0.4 MG 07-25 00:00: 00 02-19 00:00 :00 No 1{capsu le} BID Tamsulosin HCl 0.4 MG Atorvastati n Calcium 40 MG Atorvastati n Calcium 40 MG No 1{table t} QD Atorvastat in Calcium 40 MG Aspirin Low Dose 81 MG Aspirin Low Dose 81 MG No 1{table t} QD Aspirin Low Dose 81 MG Metoprolol Tartrate 25 MG Metoprolol Tartrate 25 MG No 1{table t_with_ food} BID Metoprolol Tartrate 25 MG FreeStyle Dl 3 Sensor - FreeStyle Dl 3 Sensor - No FreeStyle Dl 3 Sensor - Xarelto 20 MG Xarelto 20 MG No Xarelto 20 MG Immunizations Ordered Immunization Name Filled Immunization Name Date Status Comments Source Boostrix (Tdap) Boostrix (Tdap) 2021-06-07 13:54:00 Completed [facility] Boostrix (Tdap) Boostrix (Tdap) 2021-06-07 13:54:00 Completed [facility] Boostrix (Tdap) Boostrix (Tdap) 2021-06-07 13:54:00 Completed [facility] Boostrix (Tdap) Boostrix (Tdap) 2021-06-07 13:54:00 Completed [facility] Flucelvax - multidose vial Flucelvax - multidose vial 2021-06-07 13:53:00 Completed [facility] Flucelvax - multidose vial Flucelvax - multidose vial 2021-06-07 13:53:00 Completed [facility] Flucelvax - multidose vial Flucelvax - multidose vial 2021-06-07 13:53:00 Completed [facility] Flucelvax - multidose vial Flucelvax - multidose vial 2021-06-07 13:53:00 Completed [facility] FluAD Quad SD FluAD Quad SD Unknown Completed [facility] Flucelvax - multidose vial Flucelvax - multidose vial Unknown Completed [facility] Boostrix (Tdap) Boostrix (Tdap) Unknown Completed [facility] FluAD Quad SD FluAD Quad SD Unknown Completed [facility] Flucelvax - multidose vial Flucelvax - multidose vial Unknown Completed [facility] Boostrix (Tdap) Boostrix (Tdap) Unknown Completed [facility] Fluad (aIIV4) - SDS - 0.5mL Fluad (aIIV4) - SDS - 0.5mL Unknown Completed [facility] Flucelvax (ccIIV4) - MDV - 0.5mL Flucelvax (ccIIV4) - MDV - 0.5mL Unknown Completed [facility] Boostrix (Tdap) Boostrix (Tdap) Unknown Completed [facility] Fluad (aIIV4) - SDS - 0.5mL Fluad (aIIV4) - SDS - 0.5mL Unknown Completed [facility] Flucelvax (ccIIV4) - MDV - 0.5mL Flucelvax (ccIIV4) - MDV - 0.5mL Unknown Completed [facility] Boostrix (Tdap) Boostrix (Tdap) Unknown Completed [facility] Fluad (aIIV4) - SDS - 0.5mL Fluad (aIIV4) - SDS - 0.5mL Unknown Completed [facility] Flucelvax (ccIIV4) - MDV - 0.5mL Flucelvax (ccIIV4) - MDV - 0.5mL Unknown Completed [facility] Boostrix (Tdap) Boostrix (Tdap) Unknown Completed [facility] Fluad (aIIV4) - SDS - 0.5mL Fluad (aIIV4) - SDS - 0.5mL Unknown Completed [facility] Flucelvax (ccIIV4) - MDV - 0.5mL Flucelvax (ccIIV4) - MDV - 0.5mL Unknown Completed [facility] Boostrix (Tdap) Boostrix (Tdap) Unknown Completed [facility] Fluad (aIIV4) - SDS - 0.5mL Fluad (aIIV4) - SDS - 0.5mL Unknown Completed [facility] Flucelvax (ccIIV4) - MDV - 0.5mL Flucelvax (ccIIV4) - MDV - 0.5mL Unknown Completed [facility] Boostrix (Tdap) Boostrix (Tdap) Unknown Completed [facility] Fluad (aIIV4) - SDS - 0.5mL Fluad (aIIV4) - SDS - 0.5mL Unknown Completed [facility] Flucelvax (ccIIV4) - MDV - 0.5mL Flucelvax (ccIIV4) - MDV - 0.5mL Unknown Completed [facility] Boostrix (Tdap) Boostrix (Tdap) Unknown Completed [facility] Fluad (aIIV4) - SDS - 0.5mL Fluad (aIIV4) - SDS - 0.5mL Unknown Completed [facility] Flucelvax (ccIIV4) - MDV - 0.5mL Flucelvax (ccIIV4) - MDV - 0.5mL Unknown Completed [facility] Boostrix (Tdap) Boostrix (Tdap) Unknown Completed [facility] Fluad (aIIV4) - SDS - 0.5mL Fluad (aIIV4) - SDS - 0.5mL Unknown Completed [facility] Flucelvax (ccIIV4) - MDV - 0.5mL Flucelvax (ccIIV4) - MDV - 0.5mL Unknown Completed [facility] Boostrix (Tdap) Boostrix (Tdap) Unknown Completed [facility] Fluad (aIIV4) - SDS - 0.5mL Fluad (aIIV4) - SDS - 0.5mL Unknown Completed [facility] Flucelvax (ccIIV4) - MDV - 0.5mL Flucelvax (ccIIV4) - MDV - 0.5mL Unknown Completed [facility] Boostrix (Tdap) Boostrix (Tdap) Unknown Completed [facility] Vital Signs Vital Name Observation Time Observation Value Comments S ource height 2024-01-06 16:30:00 68 [in_i] [facility]mo [facility] weight 2024-01-06 16:30:00 201.2 [lb_av] Co mmon [facility] temperature 2024-01-06 16:30:00 97.8 [degF] Com mon [facility] bmi 2024-01-06 16:30:00 30.59 kg/m2 Comm on [facility] oximetry 2024-01-06 16:30:00 95 % [facility] respiratory rate 2024-01-06 16:30:00 18 /min [facility] blood pressure systolic 2024-01-06 16:30:00 111 mm[Hg] [facility] blood pressure diastolic 2024-01-06 16:30:00 61 mm[Hg] [facility] height 2023-10-11 07:50:00 68 [in_i] [facility] weight 2023-10-11 07:50:00 200 [lb_av] Comm on [facility] bmi 2023-10-11 07:50:00 30.41 kg/m2 Comm on [facility] height 2023-09-13 11:15:00 68 [in_i] [facility] weight 2023-09-13 11:15:00 198.0 [lb_av] Co [facility] temperature 2023-09-13 11:15:00 97.8 [degF] Com mon [facility] bmi 2023-09-13 11:15:00 30.1 kg/m2 [facility] oximetry 2023-09-13 11:15:00 98 % [facility] respiratory rate 2023-09-13 11:15:00 18 /min [facility] blood pressure systolic 2023-09-13 11:15:00 102 mm[Hg] [facility] blood pressure diastolic 2023-09-13 11:15:00 56 mm[Hg] [facility] height 2023-04-09 08:00:00 68 [in_i] [facility] weight 2023-04-09 08:00:00 208 [lb_av] Comm on [facility] bmi 2023-04-09 08:00:00 31.62 kg/m2 Comm on [facility] height 2023-01-01 11:20:00 68 [in_i] [facility] weight 2023-01-01 11:20:00 208 [lb_av] Comm on [facility] temperature 2023-01-01 11:20:00 97.5 [degF] Com [facility] bmi 2023-01-01 11:20:00 31.62 kg/m2 Comm on [facility] oximetry 2023-01-01 11:20:00 97 % [facility] respiratory rate 2023-01-01 11:20:00 16 /min [facility] blood pressure systolic 2023-01-01 11:20:00 128 mm[Hg] Common [facility] blood pressure diastolic 2023-01-01 11:20:00 70 mm[Hg] [facility] height 2022-11-27 08:00:00 68 [in_i] [facility]mo [facility] weight 2022-11-27 08:00:00 209 [lb_av] Comm on [facility] temperature 2022-11-27 08:00:00 97.0 [degF] Com [facility] bmi 2022-11-27 08:00:00 31.77 kg/m2 Comm on [facility] oximetry 2022-11-27 08:00:00 97 % [facility] respiratory rate 2022-11-27 08:00:00 16 /min [facility] blood pressure systolic 2022-11-27 08:00:00 128 mm[Hg] [facility] blood pressure diastolic 2022-11-27 08:00:00 72 mm[Hg] [facility] height 2022-09-26 09:00:00 68 [in_i] [facility]mo [facility] weight 2022-09-26 09:00:00 207 [lb_av] Comm on [facility] temperature 2022-09-26 09:00:00 97.6 [degF] Com mon [facility] bmi 2022-09-26 09:00:00 31.47 kg/m2 Comm on [facility] oximetry 2022-09-26 09:00:00 98 % [facility] respiratory rate 2022-09-26 09:00:00 16 /min [facility] blood pressure systolic 2022-09-26 09:00:00 126 mm[Hg] [facility] blood pressure diastolic 2022-09-26 09:00:00 72 mm[Hg] [facility] height 2022-06-27 09:00:00 68 [in_i] Commo [facility] weight 2022-06-27 09:00:00 207 [lb_av] Comm on [facility] temperature 2022-06-27 09:00:00 97.3 [degF] Com mon [facility] bmi 2022-06-27 09:00:00 31.47 kg/m2 Comm on [facility] oximetry 2022-06-27 09:00:00 96 % [facility] respiratory rate 2022-06-27 09:00:00 17 /min [facility] blood pressure systolic 2022-06-27 09:00:00 136 mm[Hg] [facility] blood pressure diastolic 2022-06-27 09:00:00 78 mm[Hg] [facility] height 2022-04-26 11:00:00 68 [in_i] Commo [facility] weight 2022-04-26 11:00:00 209 [lb_av] Comm on [facility] bmi 2022-04-26 11:00:00 31.77 kg/m2 Comm on [facility] height 2021-11-20 14:40:00 68 [in_i] [facility]mo [facility] weight 2021-11-20 14:40:00 191 [lb_av] Comm on [facility] temperature 2021-11-20 14:40:00 97.8 [degF] Com mon [facility] bmi 2021-11-20 14:40:00 29.04 kg/m2 Comm on [facility] oximetry 2021-11-20 14:40:00 96 % [facility] respiratory rate 2021-11-20 14:40:00 17 /min [facility] blood pressure systolic 2021-11-20 14:40:00 130 mm[Hg] [facility] blood pressure diastolic 2021-11-20 14:40:00 76 mm[Hg] [facility] height 2021-08-07 13:20:00 66 [in_i] [facility]mo [facility] weight 2021-08-07 13:20:00 202.8 [lb_av] Co [facility] temperature 2021-08-07 13:20:00 97.4 [degF] Com [facility] bmi 2021-08-07 13:20:00 32.73 kg/m2 Comm on [facility] oximetry 2021-08-07 13:20:00 98 % Com[facility] respiratory rate 2021-08-07 13:20:00 16 /min [facility] blood pressure systolic 2021-08-07 13:20:00 130 mm[Hg] [facility] blood pressure diastolic 2021-08-07 13:20:00 76 mm[Hg] [facility] height 2021-06-07 13:20:00 66 [in_i] Commo n [facility] weight 2021-06-07 13:20:00 202.4 [lb_av] [facility] temperature 2021-06-07 13:20:00 97.5 [degF] Com mon [facility] bmi 2021-06-07 13:20:00 32.66 kg/m2 Comm on [facility] oximetry 2021-06-07 13:20:00 97 % [facility] respiratory rate 2021-06-07 13:20:00 16 /min [facility] blood pressure systolic 2021-06-07 13:20:00 113 mm[Hg] [facility] blood pressure diastolic 2021-06-07 13:20:00 60 mm[Hg] [facility] height 2021-05-10 14:40:00 66 [in_i] Commo n [facility] weight 2021-05-10 14:40:00 199.2 [lb_av] Co [facility] temperature 2021-05-10 14:40:00 97.2 [degF] Com [facility] bmi 2021-05-10 14:40:00 32.15 kg/m2 Comm on [facility] oximetry 2021-05-10 14:40:00 96 % Commo [facility] respiratory rate 2021-05-10 14:40:00 16 /min [facility] blood pressure systolic 2021-05-10 14:40:00 130 mm[Hg] [facility] blood pressure diastolic 2021-05-10 14:40:00 65 mm[Hg] [facility] height 2021-05-04 10:00:00 66 [in_i] Commo n [facility] weight 2021-05-04 10:00:00 199.8 [lb_av] Co [facility] temperature 2021-05-04 10:00:00 97.6 [degF] Com [facility] bmi 2021-05-04 10:00:00 32.25 kg/m2 Comm on [facility] oximetry 2021-05-04 10:00:00 97 % Commo [facility] respiratory rate 2021-05-04 10:00:00 16 /min [facility] blood pressure systolic 2021-05-04 10:00:00 118 mm[Hg] [facility] blood pressure diastolic 2021-05-04 10:00:00 61 mm[Hg] [facility] height 2021-04-10 13:20:00 66 [in_i] Commo n [facility] weight 2021-04-10 13:20:00 199.8 [lb_av] Co [facility] temperature 2021-04-10 13:20:00 97.3 [degF] Com mon [facility] bmi 2021-04-10 13:20:00 32.25 kg/m2 Comm on [facility] oximetry 2021-04-10 13:20:00 97 % Commo [facility] respiratory rate 2021-04-10 13:20:00 16 /min [facility] blood pressure systolic 2021-04-10 13:20:00 136 mm[Hg] [facility] blood pressure diastolic 2021-04-10 13:20:00 67 mm[Hg] [facility] Encounters Start Date/Time End Date/Time Encounter Type Admission Type Attending [facility] Care Department Encounter ID Source 2023-07-05 08:48:01 Outpatient A[facility]ivan [facility] [id number] [facility] 2022-12-31 15:58:00 Outpatient Anabelle Sivan [facility] [id number] [facility] 2022-11-22 09:55:01 Outpatient Meena Ahnhani [facility] [id number] [facility] 2022-11-06 13:36:01 Outpatient Sivan Ahn [facility] [id number] [facility] 2022-09-24 09:44:00 Outpatient Sivan Ahn [facility] [id number] [facility] 2022-06-26 14:30:03 Outpatient Sivan Ahn [facility] [id number] [facility] 2021-11-20 13:59:03 Outpatient Sivan Ahn [facility] [id number] [facility] 2021-11-16 10:56:01 Outpatient Sivan Ahn [facility] [id number] [facility] 2021-06-05 15:47:01 Outpatient Sivan Ahn [facility] [id number] [facility] 2021-05-08 14:23:02 Outpatient Sivan Ahn [facility] [id number] [facility] 2021-04-19 14:37:24 Outpatient Sivan Ahn [facility] [id number] [facility] 2021-04-19 14:36:22 Outpatient Sivan Ahn [facility] [id number] [facility] 2024-03-04 00:00:00 2024-03-04 00:00:00 (TEL) [facility] [id number] [facility] 2024-01-06 00:00:00 2024-01-06 00:00:00 OFFICE VISIT ESTAB PT LEVEL 4 [facility] [id number] [facility] 2023-11-12 00:00:00 2023-11-12 00:00:00 (TEL) [facility] [id number] [facility] 2023-10-11 00:00:00 2023-10-11 00:00:00 OFFICE VISIT ESTAB PT LEVEL 4 [facility] [id number] [facility] 2023-10-09 00:00:00 2023-10-09 00:00:00 (TEL) [facility] [id number] [facility] 2023-09-13 00:00:00 2023-09-13 00:00:00 OFFICE VISIT ESTAB PT LEVEL 4 [facility] [id number] [facility] 2023-04-09 00:00:00 2023-04-09 00:00:00 OFFICE VISIT ESTAB PT LEVEL 4 [facility] [id number] [facility] 2023-03-26 00:00:00 2023-03-26 00:00:00 (TEL) [facility] [id number] [facility] 2023-03-21 00:00:00 2023-03-21 00:00:00 (TEL) [facility] [id number] [facility] 2023-01-16 00:00:00 2023-01-16 00:00:00 (TEL) [facility] [id number] [facility] 2023-01-01 00:00:00 2023-01-01 00:00:00 OFFICE VISIT ESTAB PT LEVEL 4 [facility] [id number] [facility] 2022-11-27 00:00:00 2022-11-27 00:00:00 WELCOME TO MEDICARE PREV PHY EXAM [facility] [id number] [facility] 2022-11-27 00:00:00 2022-11-27 00:00:00 (TEL) [facility] [id number] [facility] 2022-11-06 00:00:00 2022-11-06 00:00:00 (TEL) [facility] [id number] [facility] 2022-09-26 00:00:00 2022-09-26 00:00:00 OFFICE VISIT ESTAB PT LEVEL 4 [facility] [id number] [facility] 2022-06-27 00:00:00 2022-06-27 00:00:00 (ESTPT) Establishe d Patient [facility] [id number] [facility] 2022-04-26 00:00:00 2022-04-26 00:00:00 OFFICE VISIT ESTAB PT LEVEL 4 [facility] [id number] [facility] 2022-04-25 00:00:00 2022-04-25 00:00:00 (TEL) [facility]C [facility] [id number] [facility] 2021-11-20 00:00:00 2021-11-20 00:00:00 OFFICE VISIT ESTAB PT LEVEL 4 [facility] [id number] [facility] 2021-11-14 00:00:00 2021-11-14 00:00:00 (TEL) [facility]C [facility] [id number] [facility] 2021-08-07 00:00:00 2021-08-07 00:00:00 OFFICE VISIT ESTAB PT LEVEL 4 [facility] [id number] [facility] 2021-07-25 00:00:00 2021-07-25 00:00:00 (TEL) [facility]C [facility] [id number] [facility] 2021-06-07 00:00:00 2021-06-07 00:00:00 PREV VISIT EST AGE 40-64 [facility] [id number] [facility] 2021-05-10 00:00:00 2021-05-10 00:00:00 (TEL) [facility]C [facility] [id number] [facility] 2021-05-10 00:00:00 2021-05-10 00:00:00 OFFICE VISIT ESTAB PT LEVEL 4 [facility] [id number] [facility] 2021-05-04 00:00:00 2021-05-04 00:00:00 OFFICE VISIT EST PT LEVEL 3 [facility] [id number] [facility] 2021-04-10 00:00:00 2021-04-10 00:00:00 OFFICE VISIT EST PT LEVEL 3 [facility] [id number] [facility] 2018-11-22 14:22:36 2018-11-22 16:23:06 Urgent Care [facility] [id number]
[2024-03-05] MEDS ORDERED: RIVAROXABAN 20 MG TABLET PO ONE (16:17)
[2024-03-05] MEDS ORDERED: SOTALOL HCL 80 MG TAB ONE (16:18)
[2024-03-05] MEDS ORDERED: METOPROLOL TARTRATE 5 MG/5 ML INJ IV ONE (16:18)
[2024-03-05] MEDS ORDERED: NA CHLORIDE 0.9% 500 ML ONE (16:18)
[2024-03-05] MEDS ORDERED: FAMOTIDINE 20 MG/2 ML VIAL IV ONE (16:18)
[2024-03-05] MEDS ORDERED: MAGNESIUM SULFATE 1 gm IVPB 1 GM/100 ML BAG IV ONE (16:18)
--- NOTE | 2024-03-05 16:21 | RAD REPORT ---
EXAMINATION: ONE VIEW CHEST XR CLINICAL INDICATION: COUGH TECHNIQUE: Frontal chest projection is submitted. Examination is limited by patient positioning and t echnique. COMPARISON: 08/08/2017 FINDINGS: The lungs are diffusely emphysematous but grossly clear. The heart is normal in size. No displaced fr actures identified. IMPRESSION: COPD without an acute process suspected.
[2024-03-05 16:25] LABS: Absolute Eosinophils 0.2 K/uL (0-0.5); Absolute Monocytes 0.4 K/uL (0.1-1.3); Absolute Neutrophil 3.5 K/uL (1.8-8.0); Basophils % 0.8 % (0-1.3); Eosinophils % 3.2 % (0-4.4); Hematocrit 41.6 % (39.6-49.0); Lymphocytes % 32.6 % (15.3-44.8); MCH 28.4 pg (27.0-35.0); MCHC 33.6 g/dL (32.0-36.0); MCV 84.5 fL (80-100); MPV 9.5 fL (7.6-11.3); Monocytes % 6.7 % (3.3-12.3); Neutrophils % 56.7 % (41.7-73.7); Nucleated Red Blood Cells % 0.1 % (0-0); Platelets 186 thou/uL (152-406); RBC Red Blood Cell Count 4.92 M/uL (4.33-5.43); Red Cell Distribution Width 14.7 % (12.1-15.2)
[2024-03-05 16:32] LABS: PT Prothrombin Time 14.7 SECONDS (9.4-12.5); Protime INR 1.32
--- NOTE | 2024-03-05 16:58 | ER ---
Nurse's Notes [facility] Name: Richa Staples Age: 68 yrs Sex: Male : 1955 Arrival Date: 03/05/2024 Time: 15:25 Bed 17 Private MD: Diagnosis: Persistent atrial fibrillation-with RVR;Dyspnea;COPD/ Chronic obstructive pulmonary disease, unspecified Presentation: 03/05 15:48 Chief complaint: Patient states: he was sent by [facility] for abnormal EKG. patient denies ap3 any chest pain for shortness of breath at this time. Coronavirus screen: At this time, the client does not indicate any symptoms associated with coronavirus-19. Ebola Screen: No symptoms or risks identified at this time. Initial Sepsis Screen: Does the patient meet any 2 criteria? HR > 90 bpm. Does the patient have a suspected source of infection? No. Patient's initial sepsis screen is negative. Risk Assessment: Do you want to hurt yourself or someone else? Patient reports no desire to harm self or others. Onset of symptoms is unknown. 15:48 Method Of Arrival: Ambulatory ap3 15:48 Acuity: ROMÁN 2 ap3 Triage Assessment: 15:50 General: Appears in no apparent distress. Behavior is calm, cooperative, appropriate ap3 for age. Pain: Denies pain. Neuro: Level of Consciousness is awake, alert, obeys commands, Oriented to person, place, time, situation. Cardiovascular: Patient's skin is warm and dry. Cardiovascular: Rhythm is irregular. Respiratory: Airway is patent Respiratory effort is even, unlabored, Respiratory pattern is regular, symmetrical. Historical: - Allergies: 15:50 No Known Allergies; ap3 - PMHx: 15:50 Diabetes - NIDDM; Diabetes - NIDDM; Hypertension; Myocardial infarction; ap3 - PSHx: 15:50 cardiac stent (Myocardial infarction); ap3 - Immunization history:: Client reports receiving the 2nd dose of the Covid vaccine. - Infectious Disease History:: Denies. - Social history:: Smoking status: Patient denies any tobacco usage or history of. Screenin:51 [facility] ED Fall Risk Assessment (Adult) History of falling in the last 3 months, ap3 including since admission No falls in past 3 months (0 pts) Confusion or Disorientation No (0 pts) Intoxicated or Sedated No (0 pts) Impaired Gait No (0 pts) Mobility Assist Device Used No (0 pt) Altered Elimination No (0 pt) Score/Fall Risk Level 0 - 2 = Low Risk Oriented to surroundings, Maintained a safe environment, Educated pt \T\ family on fall prevention, incl call for assistance when getting out of bed, Assessed \T\ reinforced patient's understanding of fall precautions, Hourly rounding (assess needs \T\ fall precautionary measures) done, Used ambulatory aids as needed (educated on \T\ assisted with), Used gait belt as appropriate. Abuse screen: Denies threats or abuse. Nutritional screening: No deficits noted. Tuberculosis screening: No symptoms or risk factors identified. Assessment: 16:31 General: Appears in no apparent distress. Behavior is calm, cooperative. Pain: Denies tm6 pain. Neuro: Level of Consciousness is awake, alert, obeys commands, Oriented to person, place, time, situation. Cardiovascular: Patient's skin is warm and dry. Rhythm is atrial fibrillation. Cardiovascular: Denies chest pain. Respiratory: Airway is patent Respiratory effort is even, unlabored, Respiratory pattern is regular, symmetrical. GI: No signs and/or symptoms were reported involving the gastrointestinal system. Abdomen is flat, non-distended. GI: No signs and/or symptoms were reported involving the gastrointestinal system. : No signs and/or symptoms were reported regarding the genitourinary system. EENT: No signs and/or symptoms were reported regarding the EENT system. Derm: No signs and/or symptoms reported regarding the dermatologic system. Musculoskeletal: No signs and/or symptoms reported regarding the musculoskeletal system. 18:01 Reassessment: Patient and/or family updated on plan of care and expected duration. Pain tm6 level reassessed. Patient is alert, oriented x 3, equal unlabored respirations, skin warm/dry/pink. Vital Signs: 15:48 BP 129 / 49; Pulse 109; Resp 17; Temp 97.7; Pulse Ox 98% ; Weight 95.25 kg; Height 5 ap3 ft. 6 in. ; Pain 0/10; 17:22 BP 100 / 48; Pulse 74; Resp 17; Pulse Ox 98% on R/A; MAP 56 mmHg; Pain 0/10; tm6 18:01 BP 105 / 67; Pulse 62; Pulse Ox 100% on R/A; MAP 75 mmHg; Pain 0/10; tm6 15:48 Body Mass Index 33.89 (95.25 kg, 167.64 cm) ap3 15:48 Pain Scale: Adult ap3 17:22 Pain Scale: Adult tm6 18:01 Pain Scale: Adult tm6 ED Course: 15:29 Patient arrived in ED. ra3 15:30 Mohan Hager MD is Attending Physician. sheila 15:50 Triage completed. ap3 15:51 Arm band placed on right wrist. ap3 15:51 Client placed on continuous cardiac and pulse oximetry monitoring. NIBP monitoring ap3 applied. printing estimator on. Pulse ox on. NIBP on. 16:01 Saniya Jorge, RN is Primary Nurse. tm6 16:05 XRAY Chest (1 view) In Process Unspecified. EDMS 16:12 Basic Metabolic Panel Sent. tm6 16:12 CBC with Diff Sent. tm6 16:12 LFT's Sent. tm6 16:12 Magnesium Sent. tm6 16:12 NT PRO-BNP Sent. tm6 16:12 PT-INR Sent. tm6 16:12 Troponin HS Sent. tm6 16:13 Inserted saline lock: 20 gauge in right antecubital area, using aseptic technique. tm6 Blood collected. Flushed with 10 mL NS. 16:31 Patient has correct armband on for positive identification. Bed in low position. Call tm6 light in reach. Side rails up X 1. Provided Education on: use of call harry. Door closed. Noise minimized. 16:57 Sameera Leon MD is Hospitalizing Provider. [facility] 17:57 EKG done, by ED staff, reviewed by Mohan Hager MD. tm6 18:26 No provider procedures requiring assistance completed. Patient admitted, IV remains in tm6 place. Administered Medications: 16:30 Drug: NS 0.9% IV 500 ml 500 ml IV at 1 bolus once; to be given as a bolus over 30 tm6 minutes Volume: 500 ml; Route: IV; Rate: 1 bolus; Site: right forearm; 17:23 Follow up: Response: No adverse reaction; IV Status: Completed infusion; IV Intake: tm6 500ml 16:30 Drug: Sotalol PO 80 mg PO once Route: PO; tm6 17:23 Follow up: Response: No adverse reaction tm6 16:31 Drug: Metoprolol IVP 5 mg IVP once; Hold for SBP <100 or HR <60. Route: IVP; Site: tm6 right forearm; 17:23 Follow up: Response: No adverse reaction tm6 16:31 Drug: Magnesium Sulfate IVPB 1 grams IVPB once over 1 hrs Route: IVPB; Infused Over: 1 tm6 hrs; Site: right forearm; 18:02 Follow up: Response: No adverse reaction; IV Status: Completed infusion; IV Intake: tm6 100ml 16:31 Drug: Famotidine IVP 20 mg IVP once; dilute with 10 mL 0.9% NaCl; give over 2 minutes tm6 Route: IVP; Site: right forearm; 17:23 Follow up: Response: No adverse reaction tm6 18:02 Not Given (Physician Discretion): metoprolol5 mg IVP once; Hold for SBP <100 or HR <60. tm6 18:02 Not Given (Physician Discretion): metoprolol5 mg IVP once; Hold for SBP <100 or HR <60. tm6 18:25 Drug: Xarelto PO 20 mg PO once Route: PO; tm6 18:25 Follow up: Response: Medication Administered at Departure tm6 Medication: 16:31 VIS not applicable for this client. tm6 Intake: 17:23 IV: 500ml; Total: 500ml. tm6 18:02 IV: 100ml; Total: 600ml. tm6 Outcome: 16:57 Decision to Hospitalize by Provider. sheila 18:26 Admitted to Med/surg accompanied by nurse, via wheelchair, room 414, with chart, tm6 18:26 Condition: stable 18:26 Instructed on the need for admit, 18:27 Patient left the ED. tm6 Signatures: Dispatcher [employer] EDMohan Avalos MD MD cha Prokisch, Amanda RN RN ap3 Saniya Jorge RN RN tm6 Zonia Newton ra3
--- NOTE | 2024-03-05 16:59 | EDPHYS ---
Physician Documentation [facility] Name: Richa Staples Age: 68 yrs Sex: Male : 1955 Arrival Date: 03/05/2024 Time: 15:25 Bed 17 Private MD: KHAI Physician Mohan Hager HPI: 03/05 16:00 This 68 yrs old [place] Male presents to ER via Ambulatory with complaints of Abnormal sheila Lab Results - EKG. Historical: - Allergies: 15:50 No Known Allergies; ap3 - PMHx: 15:50 Diabetes - NIDDM; Diabetes - NIDDM; Hypertension; Myocardial infarction; ap3 - PSHx: 15:50 cardiac stent (Myocardial infarction); ap3 - Immunization history:: Client reports receiving the 2nd dose of the Covid vaccine. - Infectious Disease History:: Denies. - Social history:: Smoking status: Patient denies any tobacco usage or history of. ROS: 16:48 Constitutional: Negative for fever, chills, and weight loss, Eyes: Negative for injury, sheila pain, redness, and discharge, ENT: Negative for injury, pain, and discharge, Neck: Negative for injury, pain, and swelling, Respiratory: Negative for shortness of breath, cough, wheezing, and pleuritic chest pain, Abdomen/GI: Negative for abdominal pain, nausea, vomiting, diarrhea, and constipation, Back: Negative for injury and pain, : Negative for injury, bleeding, discharge, and swelling, MS/Extremity: Negative for injury and deformity, Skin: Negative for injury, rash, and discoloration, Neuro: Negative for headache, weakness, numbness, tingling, and seizure, 16:48 Cardiovascular: Positive for chest pain, palpitations, Exam: 16:48 Constitutional: This is a well developed, well nourished patient who is awake, alert, sheila and in no acute distress. Head/Face: Normocephalic, atraumatic. Eyes: Pupils equal round and reactive to light, extra-ocular motions intact. Lids and lashes normal. Conjunctiva and sclera are non-icteric and not injected. Cornea within normal limits. Periorbital areas with no swelling, redness, or edema. ENT: Nares patent. No nasal discharge, no septal abnormalities noted. Tympanic membranes are normal and external auditory canals are clear. Oropharynx with no redness, swelling, or masses, exudates, or evidence of obstruction, uvula midline. Mucous membranes moist. Neck: Trachea midline, no thyromegaly or masses palpated, and no cervical lymphadenopathy. Supple, full range of motion without nuchal rigidity, or vertebral point tenderness. No Meningismus. Chest/axilla: Normal chest wall appearance and motion. Nontender with no deformity. No lesions are appreciated. Respiratory: Lungs have equal breath sounds bilaterally, clear to auscultation and percussion. No rales, rhonchi or wheezes noted. No increased work of breathing, no retractions or nasal flaring. Abdomen/GI: Soft, non-tender, with normal bowel sounds. No distension or tympany. No guarding or rebound. No evidence of tenderness throughout. Back: No spinal tenderness. No costovertebral tenderness. Full range of motion. Male : Normal genitalia with no discharge or lesions. Skin: Warm, dry with normal turgor. Normal color with no rashes, no lesions, and no evidence of cellulitis. MS/ Extremity: Pulses equal, no cyanosis. Neurovascular intact. Full, normal range of motion., bilateral aka Neuro: Awake and alert, GCS 15, oriented to person, place, time, and situation. Cranial nerves II-XII grossly intact. Motor strength 5/5 in all extremities. Sensory grossly intact. Cerebellar exam normal. Normal gait. Psych: Awake, alert, with orientation to person, place and time. Behavior, mood, and affect are within normal limits. 16:48 Cardiovascular: Rate: tachycardic, actual rate is 158 bpm, Rhythm: irregularly irregular, Pulses: Pulses are 4+ in bilateral radial, brachial, femoral, popliteal, posterior tibial and and dorsalis pedis arteries.. Heart sounds: normal, Edema: is not appreciated, JVD: is not appreciated, 16:48 ECG was reviewed by the Attending Physician. 17:56 ECG was reviewed by the Attending Physician. sheila Vital Signs: 15:48 BP 129 / 49; Pulse 109; Resp 17; Temp 97.7; Pulse Ox 98% ; Weight 95.25 kg; Height 5 ap3 ft. 6 in. ; Pain 0/10; 17:22 BP 100 / 48; Pulse 74; Resp 17; Pulse Ox 98% on R/A; MAP 56 mmHg; Pain 0/10; tm6 18:01 BP 105 / 67; Pulse 62; Pulse Ox 100% on R/A; MAP 75 mmHg; Pain 0/10; tm6 15:48 Body Mass Index 33.89 (95.25 kg, 167.64 cm) ap3 15:48 Pain Scale: Adult ap3 17:22 Pain Scale: Adult tm6 18:01 Pain Scale: Adult tm6 MDM: 15:30 Medical Screening Exam initiated sheila 16:53 Data reviewed: vital signs, nurses notes, lab test result(s), EKG, radiologic studies, sheila plain films. 03/05 15:34 Order name: Basic Metabolic Panel; Complete Time: 17:37 [facility] 03/05 15:34 Order name: CBC with Diff; Complete Time: 16:57 [facility] 03/05 15:34 Order name: LFT's; Complete Time: 17:37 [facility] 03/05 15:34 Order name: Magnesium; Complete Time: 17:37 [facility] 03/05 15:34 Order name: NT PRO-BNP; Complete Time: 17:37 [facility] 03/05 15:34 Order name: PT-INR; Complete Time: 16:57 [facility] 03/05 15:34 Order name: Troponin HS; Complete Time: 17:37 [facility] 03/05 15:34 Order name: TSH; Complete Time: 17:37 [facility] 03/05 17:08 Order name: Basic Metabolic Panel [facility] 03/05 17:08 Order name: Basic Metabolic Panel [facility] 03/05 17:08 Order name: CBC with Automated Diff [facility] 03/05 17:08 Order name: CBC with Automated Diff [facility] 03/05 17:08 Order name: Lipid Profile [facility] 03/05 17:08 Order name: Lipid Profile [facility] 03/05 17:08 Order name: Troponin High Sensitivity [facility] 03/05 17:08 Order name: Troponin High Sensitivity [facility] 03/05 17:08 Order name: Troponin High Sensitivity [facility] 03/05 15:34 Order name: XRAY Chest (1 view); Complete Time: 16:57 [facility] 03/05 17:08 Order name: Echo with Doppler [facility] 03/05 15:34 Order name: EKG; Complete Time: 15:35 [facility] 03/05 17:08 Order name: CONS Physician Consult [facility] 03/05 17:38 Order name: EKG; Complete Time: 17:38 [facility] 03/05 15:34 Order name: Cardiac monitoring; Complete Time: 15:52 [facility] 03/05 15:34 Order name: EKG - Nurse/Tech; Complete Time: 16:12 [facility] 03/05 15:34 Order name: IV Saline Lock; Complete Time: 16:12 [facility] 03/05 15:34 Order name: Labs collected and sent; Complete Time: 16:12 [facility] 03/05 15:34 Order name: O2 Per Protocol; Complete Time: 15:52 [facility] 03/05 15:34 Order name: O2 Sat Monitoring; Complete Time: 15:52 [facility] 03/05 17:38 Order name: EKG - Nurse/Tech; Complete Time: 17:57 sheila EC:48 Rate is 158 beats/min. Rhythm is irregularly irregular. QRS [place] is Normal. CO interval sheila is normal. QRS interval is normal. QT interval is normal. No Q waves. T waves are Normal. No ST changes noted. Clinical impression: Atrial Flutter. Interpreted by me. Reviewed by me. 17:56 Rate is 61 beats/min. Rhythm is regular. QRS [place] is Normal. CO interval is normal. QRS sheila interval is normal. QT interval is normal. No Q waves. T waves are Normal. No ST changes noted. Clinical impression: NSR w/ Non-specific ST/T Changes and No evidence of ischemia. Interpreted by me. Reviewed by me. Administered Medications: 16:30 Drug: NS 0.9% IV 500 ml 500 ml IV at 1 bolus once; to be given as a bolus over 30 tm6 minutes Volume: 500 ml; Route: IV; Rate: 1 bolus; Site: right forearm; 17:23 Follow up: Response: No adverse reaction; IV Status: Completed infusion; IV Intake: tm6 500ml 16:30 Drug: Sotalol PO 80 mg PO once Route: PO; tm6 17:23 Follow up: Response: No adverse reaction tm6 16:31 Drug: Metoprolol IVP 5 mg IVP once; Hold for SBP <100 or HR <60. Route: IVP; Site: tm6 right forearm; 17:23 Follow up: Response: No adverse reaction tm6 16:31 Drug: Magnesium Sulfate IVPB 1 grams IVPB once over 1 hrs Route: IVPB; Infused Over: 1 tm6 hrs; Site: right forearm; 18:02 Follow up: Response: No adverse reaction; IV Status: Completed infusion; IV Intake: tm6 100ml 16:31 Drug: Famotidine IVP 20 mg IVP once; dilute with 10 mL 0.9% NaCl; give over 2 minutes tm6 Route: IVP; Site: right forearm; 17:23 Follow up: Response: No adverse reaction tm6 18:02 Not Given (Physician Discretion): metoprolol5 mg IVP once; Hold for SBP <100 or HR <60. tm6 18:02 Not Given (Physician Discretion): metoprolol5 mg IVP once; Hold for SBP <100 or HR <60. tm6 18:25 Drug: Xarelto PO 20 mg PO once Route: PO; tm6 18:25 Follow up: Response: Medication Administered at Departure tm6 Disposition Summary: 03/05/24 16:57 Hospitalization Ordered Notes: Hospitalization Status: Inpatient Admission sheila Provider: Sameera Leon cha Location: Telemetry/MedSurg (Inpatient) sheila Condition: Fair sheila Problem: new sheila Symptoms: have improved sheila Bed/Room Type: Standard sheila Room Assignment: 414(03/05/24 17:17) bc6 Diagnosis - Persistent atrial fibrillation - with RVR sheila - Dyspnea sheila - COPD/ Chronic obstructive pulmonary disease, unspecified sheila Forms: - Medication Reconciliation Form sheila - SBAR form sheila - Leadership Thank You Letter sheila Signatures: Dispatcher [employer] EDMohan Avalos MD MD cha Prokisch, Amanda RN RN ap3 Samantha Mederos bc6 Saniya Jorge RN RN tm6 Corrections: (The following items were deleted from the chart) 15:35 15:35 BASIC METABOLIC PANEL+C.LAB.BRZ ordered. EDMS EDMS 15:35 15:35 CBC+H.LAB.BRZ ordered. EDMS EDMS 15:35 15:35 HEPATIC FUNCTION+C.LAB.BRZ ordered. EDMS EDMS 15:35 15:35 MAGNESIUM+C.LAB.BRZ ordered. EDMS EDMS 15:35 15:35 PROBNP+C.LAB.BRZ ordered. EDMS EDMS 15:35 15:35 PROTIME (+INR)+COAG.LAB.BRZ ordered. EDMS EDMS 15:35 15:35 Troponin High Sensitivity+C.LAB.BRZ ordered. EDMS EDMS 15:35 15:35 THYROID STIMULAT HORMONE+CORBYZ ordered. EDMS EDMS 17:17 16:57 [facility]
[2024-03-05] MEDS ORDERED: ACETAMINOPHEN 500 MG TAB PO PRN (17:02)
[2024-03-05] MEDS ORDERED: ALPRAZOLAM 0.25 MG TABLET PO PRN (17:02)
[2024-03-05 17:08] LABS: ALT/SGPT 24 U/L (16-61); AST/SGOT 17 U/L (15-37); Albumin 3.5 g/dL (3.4-5.0); Alkaline Phosphatase 62 U/L (45-117); BUN Blood Urea Nitrogen 13 mg/dL (7-18); Bicarbonate 25 mEq/L (21-32); Bilirubin Total 0.4 mg/dL (0.2-1.0); Globulin 3.4 g/dL (2.3-3.5); Glomerular Filtration Rate 96 ml/min (=/>90); Glucose Level 256 mg/dL (74-106); Magnesium 1.8 mg/dL (1.6-2.4); NT PRO-BNP 323 pg/mL (<125); Protein, Total 6.9 g/dL (6.4-8.2); Sodium Level 137 mEq/L (136-145); Thyroid Stimulating Hormone 0.984 uIU/mL (0.358-3.740); Troponin High Sensitivity 54.5 pg/mL (<58.9)
--- NOTE | 2024-03-05 17:09 | P.HP ---
Certification for Inpatient Patient admitted to: Observation With expected LOS: <2 Midnights Patient will require the following post-hospital care: None Practitioner: I am a practitioner with admitting privileges, knowledge of patient current condition, hospital course, and medical plan of care. Services: Services provided to patient in accordance with Admission requirements found in Title 42 Section 412.3 of the Code of Federal Regulations Patient History Date of Service: 03/05/24 Reason for admission: Atrial fibrillation with rapid ventricular response History of Present Illness: Patient is a 62-year-old gentleman came to the hospital with palpitation. Patient sees a therapeutic program worker and was found to be in atrial fibrillation. Patient was started on sotalol. Patient will also be given anticoagulation. Patient will be admitted for observation Allergies No Known Allergies Allergy (Verified 03/08/22 10:30) Home Medications: Aspirin [Aspirin EC 81 MG] 81 mg PO DAILY #30 tablet. 04/09/20 Metformin HCl [Glucophage] 1,000 mg PO BID 05/26/21 Tamsulosin [Flomax] 0.4 mg PO BEDTIME 05/26/21 clomiPHENE citrate [Clomiphene Citrate] 40 mg PO DAILY 05/26/21 Glipizide [Glipizide Xl] 5 mg PO DAILY 03/08/22 Lisinopril [Zestril] 10 mg PO DAILY 03/08/22 - Past Medical/Surgical History Diabetic: Yes -: Hypertension -: Diabetes -: Acute coronary syndrome -: Dyslipidemia -: Nephrolithiasis -: Atrial fibrillation -: Cardiac Stent-2011 - Family History Mother Medical History: Heart disease - Social History Smoking Status: Former smoker Alcohol use: Yes CD- Drugs: No Caffeine use: Yes Review of Systems 10-point ROS is otherwise unremarkable Physical Examination - Physical Exam General: Alert, In no apparent distress, Oriented x3 HEENT: Atraumatic, PERRLA, Mucous membr. moist/pink, EOMI, Sclerae nonicteric Neck: Supple, 2+ carotid pulse no bruit, No LAD, Without JVD or thyroid abnormality Respiratory: Clear to auscultation bilaterally, Normal air movement Cardiovascular: No murmurs, Irregular heart rate/rhythm Gastrointestinal: Normal bowel sounds, Soft and benign, Non-distended, No tenderness Musculoskeletal: No clubbing, No swelling, No tenderness Integumentary: No rashes Neurological: Normal gait, Normal speech, Normal strength at 5/5 x4 extr, Normal tone, Sensation intact, Cranial nerves 3-12 intact, Normal affect Lymphatics: No axilla or inguinal lymphadenopathy - Studies Laboratory Data (last 24 hrs) 03/05/24 03/05/24 16:11 15:34 WBC 6.20 Hgb 14.0 Hct 41.6 Plt Count 186 PT 14.7 H INR 1.32 Assessment & Plan - Problems (Diagnosis) (1) Atrial fibrillation with rapid ventricular response Current Visit: Yes Status: Acute - Plan Plan: 1. Continue with antiarrhythmic and anticoagulation 2. Echocardiogram 3. Cardiology consulted 4. Lipid profile 5. Serial troponins 6. GI DVT - Advance Directives Does patient have a Living Will: No Does patient have a Durable POA for Healthcare: No
[2024-03-05 17:17] LABS: Bilirubin Direct < 0.2 mg/dL (0-0.2); Bilirubin Indirect, Calculated 0.2 mg/dL (0.2-0.8)
[2024-03-05 18:46] VITALS: BMI 33.9
[2024-03-05] MEDS ORDERED: FLU (Fluarix Triv) TS24-25(6MOS UP)/PF 45 MCG/0.5 ML Syringe IM ONE (19:00)
[2024-03-05] MEDS: APIXABAN 5 MG TABLET PO SCH (20:56)
[2024-03-05] MEDS: TAMSULOSIN 0.4 MG SR CAP PO ONE (22:15)
[2024-03-06 06:06] LABS: Absolute Eosinophils 0.2 K/uL (0-0.5); Absolute Lymphocytes (CBC) 1.8 K/uL (0.7-4.9); Absolute Monocytes 0.3 K/uL (0.1-1.3); Absolute Neutrophil 2.2 K/uL (1.8-8.0); Basophils % 0.9 % (0-1.3); Eosinophils % 5.1 % (0-4.4); Hematocrit 36.6 % (39.6-49.0); Hemoglobin 12.5 g/dL (13.6-17.9); Lymphocytes % 38.6 % (15.3-44.8); MCH 28.9 pg (27.0-35.0); MCV 84.9 fL (80-100); MPV 9.2 fL (7.6-11.3); Monocytes % 7.4 % (3.3-12.3); Nucleated Red Blood Cells % 0.2 % (0-0); Platelets 160 thou/uL (152-406); RBC Red Blood Cell Count 4.31 M/uL (4.33-5.43); Red Cell Distribution Width 14.5 % (12.1-15.2)
[2024-03-06 06:28] LABS: Anion Gap 7.3 mEq/L (5.0-15.0); Potassium 4.3 mEq/L (3.5-5.1)
[2024-03-06] MEDS: SOTALOL HCL 80 MG TAB PO ONE (09:44)
[2024-03-06 11:52] VITALS: O2SAT 98
--- NOTE | 2024-03-06 12:58 | P.CNS ---
Date of Consult: 03/06/24 Chief Complaint: Atrial fibrillation with rapid ventricular response History of Present Illness: Patient with PMH of HTN, presented as an admission from clinic for palpitations, found to be in AF w RVR, denies any other cardiac symptoms. Allergies No Known Allergies Allergy (Verified 03/08/22 10:30) Home medications list reviewed: Yes Home Medications: Tamsulosin [Flomax] 0.8 mg PO BEDTIME 05/26/21 clomiPHENE citrate [Clomiphene Citrate] 50 mg PO BEDTIME 05/26/21 Lisinopril [Zestril] 2.5 mg PO BEDTIME 03/08/22 Aspirin [Aspirin EC 325 MG] 325 mg PO BEDTIME 03/05/24 Metoprolol Tartrate 25 mg PO BEDTIME 03/05/24 Rivaroxaban [Xarelto] 20 mg PO BEDTIME 03/05/24 - Past Medical/Surgical History Diabetic: Yes -: Hypertension -: Diabetes -: Acute coronary syndrome -: Dyslipidemia -: Nephrolithiasis -: Atrial fibrillation -: Cardiac Stent-2011 - Family History Mother Medical History: Heart disease - Social History Smoking Status: Current every day smoker Alcohol use: No CD- Drugs: No Caffeine use: Yes Place of Residence: Home Review of Systems 10-point ROS is otherwise unremarkable Physical Examination Temp Pulse Resp BP Pulse Ox 98 F 106 H 16 143/75 H 98 03/06/24 11:59 03/06/24 11:59 03/06/24 11:59 03/06/24 11:59 03/06/24 11:59 General: Alert, In no apparent distress HEENT: Atraumatic, PERRLA, Mucous membr. moist/pink, EOMI, Sclerae nonicteric Neck: Supple, 2+ carotid pulse no bruit, No LAD, Without JVD or thyroid abnor mality Respiratory: Clear to auscultation bilaterally, Normal air movement Cardiovascular: Regular rate/rhythm, Normal S1 S2 Gastrointestinal: Normal bowel sounds, No tenderness Musculoskeletal: No tenderness Integumentary: No rashes Neurological: Normal gait, Normal speech, Normal tone, Normal affect Lymphatics: No axilla or inguinal lymphadenopathy Laboratory Data (last 24 hrs) 03/05/24 03/05/24 03/05/24 16:11 15:34 15:34 WBC 6.20 Hgb 14.0 Hct 41.6 Plt Count 186 PT 14.7 H INR 1.32 Sodium 137 Potassium 4.0 BUN 13 Creatinine 0.85 Glucose 256 H Magnesium 1.8 Total Bilirubin 0.4 AST 17 ALT 24 Alkaline Phosphatase 62 - Problems (1) Atrial fibrillation with rapid ventricular response Current Visit: Yes Status: Acute Plan: patient is currently in sinus rhythm continue Sotalol 80 mg po BID (EKG after 3rd dose, if QTc <500 then patient can go home) Continue Xarelto 20 mg daily D/C BB (2) Hypertension Current Visit: No Status: Chronic Plan: D/C BB Continue patient home dose lisinopril. Qualifiers: Hypertension type: essential hypertension Qualified Code(s): I10 - Essential (primary) hypertension
--- NOTE | 2024-03-06 15:44 | EKG ---
Test Date: 2024-03-05 Test Time: 17:52:25 Dental Service Technician: GHULAM MEASUREMENT RESULTS: Intervals: Rate: 61 NE: 178 QRSD: 84 QT: 406 QTc: 408 [place]: P: 69 NE: 178 QRS: 49 T: 67 INTERPRETIVE STATEMENTS: Normal sinus rhythm Low voltage QRS Borderline ECG Compared to ECG 04/09/2020 05:41:18 Atrial fibrillation no longer present Ventricular premature complex(es) no longer present Myocardial infarct finding no longer present Electronically Signed On 03-06-24 15:43:50 STITCH BONDER MACHINE OPERATOR HELPER by Brody Brown
--- NOTE | 2024-03-06 15:46 | EKG ---
Test Date: 2024-03-05 Test Time: 16:01:59 Plant Protection Officer: AM MEASUREMENT RESULTS: Intervals: Rate: 158 [place]: QRSD: 74 QT: 242 QTc: 392 [place]: P: CA: QRS: 39 T: 88 INTERPRETIVE STATEMENTS: Atrial flutter with variable AV block Low voltage QRS Cannot rule out Anteroseptal infarct, age undetermined Abnormal ECG Compared to ECG 04/09/2020 05:41:18 Atrial fibrillation no longer present Ventricular premature complex(es) no longer present Myocardial infarct finding still present Electronically Signed On 03-06-24 15:45:31 HIV NURSE by Brody Brown
[2024-03-06 16:44] VITALS: BP 146/73; TEMP 99
[2024-03-06] MEDS: SOTALOL HCL 80 MG TAB PO SCH (17:32)
[2024-03-06] MEDS ORDERED: RIVAROXABAN 20 MG TABLET PO SCH (21:00)
[2024-03-06] MEDS ORDERED: TAMSULOSIN 0.4 MG SR CAP PO SCH (21:00)
--- NOTE | 2024-03-09 18:24 | P.DS ---
Discharge Date: 03/06/24 Disposition: ROUTINE DISCHARGE Discharge Condition: GOOD Reason for Admission: Atrial fibrillation with rapid ventricular response - Problems (1) Atrial fibrillation with rapid ventricular response Status: Acute Brief History of Present Illness: Patient is a 62-year-old gentleman came to the hospital with palpitation. Patient sees a buttonhole maker hand and was found to be in atrial fibrillation. Patient was started on sotalol. Patient will also be given anticoagulation. Patient will be admitted for observation Hospital Course: Patient was given sotalol and patient's converted to sinus rhythm. At this time, patient is doing well and stable for discharge home. Vital Signs/Physical Exam: Temp Pulse Resp BP Pulse Ox 99 F 64 16 146/73 H 98 03/06/24 16:00 03/06/24 16:00 03/06/24 16:00 03/06/24 16:00 03/06/24 16:00 General: Alert, In no apparent distress, Oriented x3 Laboratory Data at Discharge: WBC 4.60 thou/uL (4.3-10.9) 03/06/24 05:52 Hgb 12.5 g/dL (13.6-17.9) L D 03/06/24 05:52 Hct 36.6 % (39.6-49.0) L 03/06/24 05:52 Plt Count 160 thou/uL (152-406) 03/06/24 05:52 PT 14.7 SECONDS (9.4-12.5) H 03/05/24 15:34 INR 1.32 03/05/24 15:34 Sodium 137 mEq/L (136-145) 03/06/24 05:52 Potassium 4.3 mEq/L (3.5-5.1) 03/06/24 05:52 BUN 11 mg/dL (7-18) 03/06/24 05:52 Creatinine 0.72 mg/dL (0.70-1.30) 03/06/24 05:52 Glucose 208 mg/dL (74-106) H 03/06/24 05:52 Magnesium 1.8 mg/dL (1.6-2.4) 03/05/24 15:34 Total Bilirubin 0.4 mg/dL (0.2-1.0) 03/05/24 15:34 AST 17 U/L (15-37) 03/05/24 15:34 ALT 24 U/L (16-61) 03/05/24 15:34 Alkaline Phosphatase 62 U/L (45-117) 03/05/24 15:34 Triglycerides 83 mg/dL (<150) 03/06/24 05:52 Cholesterol 101 mg/dL (<200) 03/06/24 05:52 HDL Cholesterol 28 mg/dL (40-60) L 03/06/24 05:52 Cholesterol/HDL Ratio 3.61 03/06/24 05:52 Home Medications: Tamsulosin [Flomax*] 0.8 mg PO BEDTIME 05/26/21 clomiPHENE citrate [Clomiphene Citrate] 50 mg PO BEDTIME 05/26/21 Lisinopril [Zestril] 2.5 mg PO BEDTIME 03/08/22 Rivaroxaban [Xarelto] 20 mg PO BEDTIME 03/05/24 Sotalol HCl [Betapace*] 80 mg PO BID 6AM 6PM #60 tab 03/06/24 New Medications: Sotalol HCl [Betapace*] 80 mg PO BID 6AM 6PM #60 tab Physician Discharge Instructions: -DC IV and DC home -Follow-up with PCP in 1 to 2 weeks -Follow-up with Cardiology in 1 to 2 weeks -Please call Dr. Leon at [phone] if any questions regarding hospital stay -Please call nursing station at [phone] if any nursing or medication questions -Return to the emergency room if symptoms worsen Diet: AHA Activity: Fall precautions Followup: Brody Brown MD [ACTIVE - CAN ADMIT] - 1-2 Weeks Sivan Ahn MD [Primary Care Provider] - 1-2 Weeks Time spent managing pt's care (in minutes): 35
== END 2024-03-06 19:00 | disposition home or self-care (01) ==
LOC: ER 15:25 → ERHOLD 17:02 → 4TH 18:22
PROVIDERS: ADMIT Hospitalist; ATTEND Hospitalist
DX: I48.11 Longstanding persistent atrial fibrillation (principal); I10 Essential (primary) hypertension; E11.9 Type 2 diabetes mellitus without complications; E78.5 Hyperlipidemia, unspecified; Z79.01 Long term (current) use of anticoagulants; Z95.5 Presence of coronary angioplasty implant and graft; Z87.891 Personal history of nicotine dependence; I25.2 Old myocardial infarction; J44.9 Chronic obstructive pulmonary disease, unspecified
CPT/HCPCS: 96365; 93005 ×2; 93306; 85025 ×2; 80048 ×2; 36415; 83735; 85610; 80061; 80076; 84443; 84484 ×3; 83880; 71045; 96375; 99285; 96366; J3475; J7040; G0378

== ENCOUNTER 2024-05-05 13:00 | Day surgery (SDC) | payer OTHER ==
[2024-05-01 13:53] LABS: Absolute Eosinophils 0.1 K/uL (0-0.5); Absolute Lymphocytes (CBC) 1.8 K/uL (0.7-4.9); Absolute Monocytes 0.4 K/uL (0.1-1.3); Absolute Neutrophil 4.1 K/uL (1.8-8.0); Basophils % 0.7 % (0-1.3); Eosinophils % 2.3 % (0-4.4); Hematocrit 42.7 % (39.6-49.0); Hemoglobin 14.8 g/dL (13.6-17.9); Lymphocytes % 27.2 % (15.3-44.8); MCH 29.2 pg (27.0-35.0); MCHC 34.7 g/dL (32.0-36.0); MCV 84.1 fL (80-100); MPV 10.1 fL (7.6-11.3); Monocytes % 6.1 % (3.3-12.3); Neutrophils % 63.7 % (41.7-73.7); Nucleated Red Blood Cells % 0.1 % (0-0); Platelets 172 thou/uL (152-406); RBC Red Blood Cell Count 5.08 M/uL (4.33-5.43)
[2024-05-01 14:05] LABS: Anion Gap 9.3 mEq/L (5.0-15.0); PT Prothrombin Time 14.8 SECONDS (9.4-12.5); PTT, Activated Partial Thromb 35.8 SECONDS (24.3-36.9); Potassium 4.3 mEq/L (3.5-5.1); Protime INR 1.41
[2024-05-05] MEDS ORDERED: NA CHLORIDE 0.9% 500 ML ONE (13:57)
[2024-05-05] MEDS ORDERED: VERAPAMIL HCL 10 MG/4 ML VIAL IV ONE (14:42)
[2024-05-05] MEDS ORDERED: HEPARIN 5000 UNIT/ML 1 ML VIAL ONE (14:42)
[2024-05-05] MEDS ORDERED: HEPA 1000U/500MLS 2,000 UNIT/1,000 ML BAG IV ONE (14:42)
[2024-05-05] MEDS ORDERED: LIDOCAINE 1% 20 ML MDV ONE (14:45)
[2024-05-05] MEDS ORDERED: MIDAZOLAM HCL 2 MG/2 ML INJ ONE (14:46)
[2024-05-05] MEDS ORDERED: FENTANYL CITR 100 MCG/2 ML ONE (14:46)
[2024-05-05] MEDS ORDERED: ATROPINE SULF 1 MG/10 ML SYR IV ONE (15:22)
[2024-05-05] MEDS ORDERED: HEPARIN 10,000 UNIT/10 ML VIAL IV ONE (16:33)
[2024-05-05 18:37] VITALS: O2SAT 98
[2024-05-05 18:51] VITALS: BP 112/56
--- NOTE | 2024-05-05 19:19 | OP ---
Date of Procedure: 05/05/2024 Surgeon: HERBERTH HARRIS Procedures Performed: 1. Selective coronary angiogram. 2. Left heart catheterization. Indication: Unstable angina. Access: Right radial artery 6-Colombian, closed with TR band. Complications: None. Bleeding: Less than 50 mL. Anesthesia: Total sedation time is 50 minutes, used fentanyl and Versed. Description Of Procedure: After risks, benefits, and alternatives were explained, the patient agreed to procedure and signed informed consent. The patient was brought into cardiac catheterization labo banner, prepped and draped in usual sterile fashion. Then, I accessed right radial artery using pedi atric micropuncture kit and placed 6-Colombian Slender sheath and took 5-Colombian [place] 4 catheter into th e aortic root across the aortic valve, measured the LVEDP. Pullback did not record any significant g radient. Then, I engaged the RCA, took standard views, and then the left main, took standard views, and removed the catheter and the sheath, placed TR band with good hemostasis. Findings: 1. Left main is normal. 2. LAD; proximal 70% to 80% proximal to mid right before the stent, becomes 90% stenosis, heavily stephanie cified diagonal with luminal irregularities and there is widely patent stent. The rest of the LAD wi th luminal irregularities. 3. Left circumflex: Large and dominant circulation. The left PDA has multiple tandem lesions that a re 90% stenosis. Rest of the left circumflex and OM is normal. 4. RCA: Small, nondominant with mid 80% stenosis, but it is very tiny about 1 mm vessel. 5. LVEDP is normal at 5 mmHg. Conclusion: Severe left circumflex and LAD stenosis with RCA being nondominant. Recommendation: CABG versus high-risk PCI in [place]. The patient will think about it and come up w ith this with me tomorrow and we will make a decision on which way to proceed. SR/MODL Voice ID: [id number] Report ID: [id number]
== END 2024-05-05 18:56 | disposition home or self-care (01) ==
LOC: CCL 13:00
PROVIDERS: ATTEND Internal Medicine
DX: I25.110 Atherosclerotic heart disease of native coronary artery with unstable angina pectoris (principal); I48.91 Unspecified atrial fibrillation; I10 Essential (primary) hypertension; E11.9 Type 2 diabetes mellitus without complications; E78.2 Mixed hyperlipidemia; Z95.5 Presence of coronary angioplasty implant and graft; Z79.01 Long term (current) use of anticoagulants; Z79.4 Long term (current) use of insulin; Z79.899 Other long term (current) drug therapy
CPT/HCPCS: 85025; 80048; 36415; 85610; 82947; 85730; 93458; 76937; C1893; Q9966; J1644; J2003; J2250; J3010; J7040; 99152; 99153; J0461